=== PATIENT | male | born 1940 | race Caucasian/White ===

== ENCOUNTER → 2018-03-23 | Outpatient (CLI) | payer MEDICARE, BC ==
--- NOTE | 2018-03-23 09:37 | MR ---
EXAMINATION TYPE: MR brain wo/w con DATE OF EXAM: 03/23/2018 9:17 AM COMPARISON: NONE HISTORY: Memory loss TECHNIQUE: Multiplanar, multiecho imaging of the brain was obtained with and without intravenous adm inistration of 10 mL intravenous Gadavist. FINDINGS: Midline structures are unremarkable. There is a normal craniocervical junction. Echoplanar diffusion imaging is normal. There is mild mucoperiosteal thickening involving the left maxillary sinus. There are retention cyst or polyps involving both maxillary antra. The largest is in the left maxillary sinus and measures 1.3 cm. There are normal vascular flow voids. The orbits appear normal. There is no evidence of a CP angle mass lesion. There is both punctate and confluent periventricular white matter change which is likely on the basis of chronic ischemic change and small vessel disease. Other forms of demyelination are not entirely e xcluded. There is no mass effect, midline shift or intracranial blood. Following intravenous administration of gadolinium, I do not see evidence of abnormal enhancement. IMPRESSION: 1. NO ACUTE INTRACRANIAL ABNORMALITY. 2. BOTH PUNCTATE AND CONFLUENT PERIVENTRICULAR WHITE MATTER CHANGE COMPATIBLE WITH A COMBINATION OF C HRONIC ISCHEMIC CHANGE AND SMALL VESSEL ISCHEMIC CHANGE. 3. BILATERAL MAXILLARY MUCOSAL DISEASE.
== END | disposition home or self-care (01) ==
LOC: RADMRIMAIN 07:24
PROVIDERS: ATTEND Psychiatry & Neurology Neurology
DX: I67.82 Cerebral ischemia (principal); G31.9 Degenerative disease of nervous system, unspecified; Z86.69 Personal history of other diseases of the nervous system and sense organs
CPT/HCPCS: 82565; 70553; 36415; A9585

== ENCOUNTER 2019-12-20 04:37 | Observation (INO) | payer MEDICARE, BC ==
[2019-12-20 05:11] LABS: Basophils # (A) 0.1 k/uL (0-0.2); Basophils % (A) 1 %; Eosinophils # (A) 0.5 k/uL (0-0.7); Eosinophils % (A) 10 %; HCT 44.5 % (39.0-53.0); HGB 14.4 gm/dL (13.0-17.5); Lymphocytes # (A) 1.3 k/uL (1.0-4.8); Lymphocytes % (A) 23 %; MCH 30.3 pg (25.0-35.0); MCHC 32.3 g/dL (31.0-37.0); MCV 93.8 fL (80.0-100.0); Monocytes # (A) 0.3 k/uL (0-1.0); Monocytes % (A) 6 %; Neutrophils # (A) 3.3 k/uL (1.3-7.7); Neutrophils % (A) 59 %; Platelet Count 178 k/uL (150-450); RBC 4.74 m/uL (4.30-5.90); WBC 5.6 k/uL (3.8-10.6)
--- NOTE | 2019-12-20 05:12 | ED ---
Abdominal Pain HPI - General Chief Complaint: Abdominal Pain Stated Complaint: Abdominal Pain Time Seen by Provider: 12/20/19 04:46 Source: patient, EMS Mode of arrival: EMS Limitations: no limitations - History of Present Illness Initial Comments: This patient is an 79-year-old man who presents to be evaluated for left upper quadrant pain. The patient states that his symptoms had started yesterday at approximately 4 PM. He noticed the onset of left upper quadrant pain. He is not able to characterize the pain. He states that it was constant but not severe. He had eaten his evening meal as usual and states that he had what he considered be a normal bowel movement yesterday evening. Patient went to sleep and then woke up this morning and the pain was severe so his called EMS. The patient did receive 50 g of fentanyl and states that this had result the pain. Patient has not had any other associated symptoms. During the initial hi story and physical he is declining additional analgesia MD Complaint: abdominal pain Onset/Timin -: hour(s) Location: LUQ Radiation: none Severity scale (1-10): 9 Quality: other (Unable to characterize) Consistency: now resolved Improves With: medication (Fentanyl) Worsens With: nothing Treatments Prior to Arrival: other - Related Data Home Medications Medication Instructions Recorded Confirmed Aspirin 81 mg PO DAILY 08/15/13 12/20/19 Losartan Potassium [Cozaar] 100 mg PO DAILY 08/15/13 12/20/19 Donepezil HCl [Aricept] 10 mg PO DAILY 12/20/19 12/20/19 Fish Oil/Dha/Epa [Fish Oil 1,200 1 cap PO DAILY 12/20/19 12/20/19 mg Fish Oil] Garlic 1 tab PO DAILY 12/20/19 12/20/19 Latanoprost/Pf [Latanoprost 0.005% 1 drop BOTH EYES HS 12/20/19 12/20/19 Eye Drop] Multivitamins, Thera [Multivitamin 1 tab PO DAILY 12/20/19 12/20/19 (formulary)] Turmeric Root Extract [Turmeric] 500 mg PO DAILY 12/20/19 12/20/19 buPROPion XL [Wellbutrin Xl] 300 mg PO DAILY 12/20/19 12/20/19 Previous Rx's Medication Instructions Recorded Hydrocodone/Acetaminophen [Palmer 1 each PO Q6HR PRN #20 tab 12/20/19 5-325] Ondansetron Odt [Zofran ODT] 4 mg PO Q8HR PRN #10 tab 12/20/19 Allergies Allergy/AdvReac Type Severity Reaction Status Date / Time No Known Allergies Allergy Verified 12/20/19 07:36 Review of Systems ROS Statement: Those systems with pertinent positive or pertinent negative responses have been documented in the HPI. ROS Other: All systems not noted in ROS Statement are negative. Constitutional: Denies: fever, chills Respiratory: Denies: cough, dyspnea Cardiovascular: Denies: chest pain, palpitations, edema, syncope Gastrointestinal: Reports: as per HPI, abdominal pain. Denies: nausea, vomiting, diarrhea, constipation, melena, hematochezia Genitourinary: Denies: dysuria, hematuria, testicular pain Musculoskeletal: Denies: back pain Skin: Denies: rash Neurological: Denies: headache, weakness, numbness Past Medical History Past Medical History: Hypertension Additional Past Medical History / Comment(s): Medical history; patient has a history of depression, benign prostatic hypertrophy, hypertension and glaucoma. The patient surgery include spinal surgery as a teenager. Recent Right RAMON done 07/29/2013 History of Any Multi-Drug Resistant Organisms: None Reported Past Surgical History: Cholecystectomy, Joint Replacement Additional Past Surgical History / Comment(s): RIGHT HIP Past Anesthesia/Blood Transfusion Reactions: No Reported Reaction Past Psychological History: Depression Smoking Status: Never smoker Past Alcohol Use History: None Reported Past Drug Use History: None Reported General Exam Limitations: no limitations General appearance: alert, in no apparent distress Head exam: Present: atraumatic, normocephalic Eye exam: Present: normal appearance. Absent: scleral icterus, conjunctival injection ENT exam: Present: normal oropharynx Neck exam: Present: normal inspection Respiratory exam: Present: normal lung sounds bilaterally. Absent: respiratory distress, wheezes, rales, rhonchi, stridor, chest wall tenderness Cardiovascular Exam: Present: regular rate, normal rhythm, normal heart sounds. Absent: systolic murmur, diastolic murmur, rubs, gallop GI/Abdominal exam: Present: soft, tenderness (Left upper quadrant). Absent: distended, guarding, rebound, rigid, mass, pulsatile mass Extremities exam: Present: normal inspection, normal capillary refill. Absent: pedal edema, calf tenderness Back exam: Present: normal inspection. Absent: CVA tenderness (R), CVA tenderness (L) Neurological exam: Present: alert Skin exam: Present: warm, dry, intact, normal color. Absent: rash Course Vital Signs 12/20/19 12/20/19 04:43 07:08 Temperature 98.7 F 98 F Pulse Rate 60 65 Respiratory 18 18 Rate Blood Pressure 134/71 148/90 O2 Sat by Pulse 95 96 Oximetry Medical Decision Making - Lab Data Result diagrams: 12/20/19 04:56 12/20/19 04:56 Lab Results 12/20/19 12/20/19 12/20/19 Range/Units 04:56 04:56 04:56 WBC 5.6 (3.8-10.6) k/uL RBC 4.74 (4.30-5.90) m/uL Hgb 14.4 (13.0-17.5) gm/dL Hct 44.5 (39.0-53.0) % MCV 93.8 (80.0-100.0) fL MCH 30.3 (25.0-35.0) pg MCHC 32.3 (31.0-37.0) g/dL RDW 13.0 (11.5-15.5) % Plt Count 178 (150-450) k/uL Neutrophils % 59 % Lymphocytes % 23 % Monocytes % 6 % Eosinophils % 10 % Basophils % 1 % Neutrophils # 3.3 (1.3-7.7) k/uL Lymphocytes # 1.3 (1.0-4.8) k/uL Monocytes # 0.3 (0-1.0) k/uL Eosinophils # 0.5 (0-0.7) k/uL Basophils # 0.1 (0-0.2) k/uL Sodium 139 (137-145) mmol/L Potassium 4.5 (3.5-5.1) mmol/L Chloride 110 H (98-107) mmol/L Carbon Dioxide 21 L (22-30) mmol/L Anion Gap 8 mmol/L BUN 35 H (9-20) mg/dL Creatinine 1.12 (0.66-1.25) mg/dL Est GFR (CKD-EPI)AfAm 72 (>60 ml/min/1.73 sqM) Est GFR (CKD-EPI)NonAf 62 (>60 ml/min/1.73 sqM) Glucose 103 H (74-99) mg/dL Plasma Lactic Acid Josué (0.7-2.0) mmol/L Calcium 8.9 (8.4-10.2) mg/dL Total Bilirubin 0.5 (0.2-1.3) mg/dL AST 40 (17-59) U/L ALT 22 (4-49) U/L Alkaline Phosphatase 77 (38-126) U/L Troponin I (0.000-0.034) ng/mL Total Protein 6.8 (6.3-8.2) g/dL Albumin 3.9 (3.5-5.0) g/dL Amylase 246 H (30-110) U/L Lipase 893 H (23-300) U/L Urine Color Yellow Urine Appearance Clear (Clear) Urine pH 5.0 (5.0-8.0) Ur Specific [place] 1.024 (1.001-1.035) Urine Protein Negative (Negative) Urine Glucose (UA) Negative (Negative) Urine Ketones Negative (Negative) Urine Blood Negative (Negative) Urine Nitrite Negative (Negative) Urine Bilirubin Negative (Negative) Urine Urobilinogen <2.0 (<2.0) mg/dL Ur Leukocyte Esterase Negative (Negative) 12/20/19 12/20/19 Range/Units 04:56 04:56 WBC (3.8-10.6) k/uL RBC (4.30-5.90) m/uL Hgb (13.0-17.5) gm/dL Hct (39.0-53.0) % MCV (80.0-100.0) fL MCH (25.0-35.0) pg MCHC (31.0-37.0) g/dL RDW (11.5-15.5) % Plt Count (150-450) k/uL Neutrophils % % Lymphocytes % % Monocytes % % Eosinophils % % Basophils % % Neutrophils # (1.3-7.7) k/uL Lymphocytes # (1.0-4.8) k/uL Monocytes # (0-1.0) k/uL Eosinophils # (0-0.7) k/uL Basophils # (0-0.2) k/uL Sodium (137-145) mmol/L Potassium (3.5-5.1) mmol/L Chloride (98-107) mmol/L Carbon Dioxide (22-30) mmol/L Anion Gap mmol/L BUN (9-20) mg/dL Creatinine (0.66-1.25) mg/dL Est GFR (CKD-EPI)AfAm (>60 ml/min/1.73 sqM) Est GFR (CKD-EPI)NonAf (>60 ml/min/1.73 sqM) Glucose (74-99) mg/dL Plasma Lactic Acid Josué 0.9 (0.7-2.0) mmol/L Calcium (8.4-10.2) mg/dL Total Bilirubin (0.2-1.3) mg/dL AST (17-59) U/L ALT (4-49) U/L Alkaline Phosphatase (38-126) U/L Troponin I <0.012 (0.000-0.034) ng/mL Total Protein (6.3-8.2) g/dL Albumin (3.5-5.0) g/dL Amylase (30-110) U/L Lipase (23-300) U/L Urine Color Urine Appearance (Clear) Urine pH (5.0-8.0) Ur Specific [place] (1.001-1.035) Urine Protein (Negative) Urine Glucose (UA) (Negative) Urine Ketones (Negative) Urine Blood (Negative) Urine Nitrite (Negative) Urine Bilirubin (Negative) Urine Urobilinogen (<2.0) mg/dL Ur Leukocyte Esterase (Negative) Disposition Clinical Impression: Pancreatitis, Abdominal pain Disposition: ADMITTED IP TO THIS [facility] Condition: Good Is patient prescribed a controlled substance at d/c from ED?: Yes When asked, does pt state using other controlled substances?: No If prescribed controlled substance>3 days was MAPS reviewed?: Prescribed <3 Days If opioid is for acute pain is fill amount 7 days or less?: Yes If Rx opioid, was Start Talking consent form obtained?: Yes
[2019-12-20 05:24] LABS: Albumin 3.9 g/dL (3.5-5.0); Calcium 8.9 mg/dL (8.4-10.2); Total Bilirubin 0.5 mg/dL (0.2-1.3); Total Protein 6.8 g/dL (6.3-8.2)
--- NOTE | 2019-12-20 05:31 | CT ---
EXAMINATION TYPE: CT abdomen pelvis wo con DATE OF EXAM: 12/20/2019 COMPARISON: None HISTORY: lUQ pain CT DLP: 960.9 mGycm Automated exposure control for dose reduction was used. Images were obtained from the diaphragm to the floor the pelvis with no contrast. There is interstitial fibrotic changes at the lung bases. There is moderate-sized hiatal hernia. Hear t is borderline enlarged. There is no pericardial effusion. There is no pleural effusion. There are clips from cholecystectomy. Liver shows no focal defect. Spleen is intact. There is no evid ence of pancreatic mass. The bile ducts are not dilated. Stomach has overall normal size. There is no adrenal mass. There is 3 cm hypodense area anterior right kidney that is probably a corti woo cyst. Ureters are not dilated. There is no hydronephrosis. There are bilateral probable renal par apelvic cysts. There is no retroperitoneal adenopathy. Bladder distends smoothly. There is metal anirudh fact from right hip prosthesis. There is no inguinal hernia. There is no free fluid in the pelvis. Th ere is multiple sigmoid diverticula. There is no sign of diverticulitis. The cecum is at the midline abdomen. Appendix is not seen. There is no sign of thickened appendix. There is no ascites or free ai r. There is no evidence of a bowel obstruction. There is no mesenteric edema. Lumbar vertebra have normal alignment. There is mild narrowing of disc spaces. There is no compressio n fracture. The bony pelvis is intact. There is some L4-5 mild bony spinal stenosis. There is mild L3 -4 bony spinal stenosis. IMPRESSION: Interstitial fibrotic changes and subsegmental atelectasis at the lung bases. Hiatal hernia. Renal pa rapelvic cysts. No renal obstruction. Appendix not seen. Moderate sigmoid diverticulosis without diverticulitis.
[2019-12-20 05:41] LABS: Potassium 4.5 mmol/L (3.5-5.1)
[2019-12-20 06:08] LABS: Appearance,Urine Clear (Clear); Bilirubin,Urine Negative (Negative); Blood,Urine Negative (Negative); Color,Urine Yellow; Glucose,Urine (UA) Negative (Negative); Ketones,Urine Negative (Negative); Leukocyte Esterase,Urine Negative (Negative); Nitrite,Urine Negative (Negative); Protein,Urine Negative (Negative); Specific Gravity,Urine 1.024 (1.001-1.035); Urobilinogen,Urine <2.0 mg/dL (<2.0)
[2019-12-20] MEDS ORDERED: SODIUM CHLORIDE 0.9% 500 ML 500 ML IV STA (06:41)
[2019-12-20] MEDS ORDERED: MORPHINE SULFATE 4 MG/ML SYRINGE IV STA (06:41)
[2019-12-20] MEDS ORDERED: NALOXONE 0.4 MG/ML 1 ML VIAL IV PRN (08:15)
[2019-12-20] MEDS ORDERED: ONDANSETRON 4 MG/2 ML VIAL IVP PRN (08:15)
[2019-12-20] MEDS ORDERED: MORPHINE SULFATE 4 MG/ML SYRINGE IV PRN (08:15)
[2019-12-20] MEDS: SODIUM CHLORIDE 0.9% 1,000 ML IV SCH ×2 (08:32→16:51)
--- NOTE | 2019-12-20 08:41 | P.HPIM ---
History of Present Illness H&P Date: 12/20/19 Chief Complaint: Abdominal pain, pancreatitis This is an 79-year-old patient of Dr. anisha Jacobs with past medical history significant for hypertension, BPH, depression, and glaucoma. Patient presented today with intractable abdominal pain. Patient states that yesterday he noticed abdominal discomfort in the left upper quadrant around 4 PM. Patient ate his evening meal without any difficulties denies any nausea or vomiting at that time. Patient states that he had a normal bowel movement in the morning. Patient went to sleep and was awoken at 4:00 with severe abdominal pain. At that time as patient's called for EMS and was brought into the emergency room. Patient was found to have elevated amylase and lipase. Patient was given fentanyl which did relieve his symptoms. Patient is found resting in bed complaining of severe left upper quadrant abdominal pain. Patient states that the pain is worse with moving. Patient does drink beer however he usually only has 1 beer probably once a week. Patient did have a beer approximately 1 day prior to this episode. Patient experienced a fall 2-3 days ago where he tripped landing on his knees. Patient was able to get up on own. He denies any injury denies any hip or back pain. Review of Systems Review Of Systems: Constitutional: No fever, no chills, no night sweats. No weight change. No weakness, fatigue or lethargy. No daytime sleepiness. Reports recent fall EENT: No headache. No blurred vision or double vision, no loss of vision. No loss of Hearing, no ringing in the ears, no dizziness. No nasal drainage or congestion. No epistaxis. No sore throat. Lungs: No shortness of breath, cough, no sputum production. No wheezing. Cardiovascular: No chest pain, no lower extremity edema. No palpitations. No paroxysmal nocturnal dyspnea. No orthopnea. No lightheadedness or dizziness. No syncopal episodes. Abdominal: Reports abdominal severe discomfort. No nausea, vomiting. no diarrhea. No constipation. No bloody or tarry stools. no loss of appetite. Genitourinary: No dysuria, increased frequency, urgency. No urinary retention. Musculoskeletal: No myalgias. No muscle weakness, no gait dysfunction, no frequent falls. No back pain. No neck pain. Integumentary: No wounds, no lesions. No rash or pruritus. No unusual bruising. No change in hair or nails. Neurologic: No aphasia. No facial droop. No change in mentation. No head injury. No headache. No paralysis. No paresthesia. Psychiatric: No depression. No anxiety. No mood swings. Endocrine: No abnormal blood sugars. No weight change. No excessive sweating or thirst. Past Medical History Past Medical History: Hypertension Additional Past Medical History / Comment(s): Medical history; patient has a history of depression, benign prostatic hypertrophy, hypertension and glaucoma. The patient surgery include spinal surgery as a teenager. Recent Right RAMON done 07/29/2013 History of Any Multi-Drug Resistant Organisms: None Reported Past Surgical History: Cholecystectomy, Joint Replacement Additional Past Surgical History / Comment(s): RIGHT HIP Past Anesthesia/Blood Transfusion Reactions: No Reported Reaction Past Psychological History: Depression Smoking Status: Never smoker Past Alcohol Use History: None Reported Past Drug Use History: None Reported Additional History: Daughter- healthy, sister-healthy, mom- throat ca, dad- age 70 liver Medications and Allergies Home Medications Medication Instructions Recorded Confirmed Type Aspirin 81 mg PO DAILY 08/15/13 12/20/19 History Losartan Potassium [Cozaar] 100 mg PO DAILY 08/15/13 12/20/19 History Donepezil HCl [Aricept] 10 mg PO DAILY 12/20/19 12/20/19 History Fish Oil/Dha/Epa [Fish Oil 1,200 1 cap PO DAILY 12/20/19 12/20/19 History mg Fish Oil] Garlic 1 tab PO DAILY 12/20/19 12/20/19 History Hydrocodone/Acetaminophen [Birney 1 each PO Q6HR PRN #20 tab 12/20/19 Rx 5-325] Latanoprost/Pf [Latanoprost 0.005% 1 drop BOTH EYES HS 12/20/19 12/20/19 History Eye Drop] Multivitamins, Thera [Multivitamin 1 tab PO DAILY 12/20/19 12/20/19 History (formulary)] Ondansetron Odt [Zofran ODT] 4 mg PO Q8HR PRN #10 tab 12/20/19 Rx Turmeric Root Extract [Turmeric] 500 mg PO DAILY 12/20/19 12/20/19 History buPROPion XL [Wellbutrin Xl] 300 mg PO DAILY 12/20/19 12/20/19 History Allergies Allergy/AdvReac Type Severity Reaction Status Date / Time No Known Allergies Allergy Verified 12/20/19 07:36 Physical Exam Vitals: Vital Signs Temp Pulse Resp BP Pulse Ox 12/20/19 07:08 98 F 65 18 148/90 96 12/20/19 04:43 98.7 F 60 18 134/71 95 Intake and Output 12/19/19 12/20/19 12/20/19 22:59 06:59 14:59 Other: Weight 95.254 kg General Appearance: Alert, cooperative, no distress, appears stated age. Neck HEENT: Supple, no lymphadenopathy, no thyroid enlargement, no carotid bruits. Lungs: Clear to auscultation without crackles or wheezes no rhonchi, no deformity. Chest Wall: Chest wall normal expansion with deep inspiration no tenderness and no deformity was found on exam, no costochondral pain or discomfort. Heart: Regular rate and rhythm, S1, S2 normal, no murmur, rub or gallop. Back: Symmetric, no curvature, ROM normal, no CVA tenderness. Abdomen: Pain with palpation, Soft, no rebound or rigidity, no hepatosplenomegaly. Extremities: Extremities normal, atraumatic, no cyanosis or edema. Pulses: 2+ and symmetric. Skin: Skin color, texture, tugor normal, no rashes or lesions. Neurologic: Alert oriented x3 cranial nerves II through XII intact, no motor deficit, no abnormal balance or gait Results CBC & Chem 7: 12/20/19 04:56 12/20/19 04:56 Labs: Abnormal Lab Results - Last 24 Hours (Table) 12/20/19 Range/Units 04:56 Chloride 110 H (98-107) mmol/L Carbon Dioxide 21 L (22-30) mmol/L BUN 35 H (9-20) mg/dL Glucose 103 H (74-99) mg/dL Amylase 246 H (30-110) U/L Lipase 893 H (23-300) U/L Assessment and Plan Assessment: 1. Pancreatitis. Consult gastroenterology, nothing by mouth this time except ice chips, bowel rest. Anoscopy many years ago. We'll continue with pain meds. 2. Abdominal pain. See above 3. Episodic alcohol intake. 3. Hypertension. Continue with Cozaar 4. BPH. Stable 5. Depression. Continue with Wellbutrin 300 mg by mouth 6. DVT prophylaxis subcu heparin 7. GI prophylaxis Protonix 40 mg twice a day CODE STATUS: Full code Discharge plan: Home Impression and plan of care have been directed as dictated by the signing physician. Indu Carter nurse practitioner acting as scribe for signing physician. Plan: 1. Abdominal pain. Continue pain analgesics with Dilaudid and nausea with Zofran 2. Pancreatitis. Consult gastroenterology 3. Hypertension continue Cozaar 100 mg daily 4. BPH. Stable 5. Depression. Continue Wellbutrin 200 mg daily DVT prophylaxis GI prophylaxis CODE STATUS: Full code Impression and plan of care have been directed as dictated by the signing physician. Indu Carter nurse practitioner acting as scribe for signing physician.
[2019-12-20] MEDS: HYDROmorphone 0.5 MG/0.5 ML SYRINGE IVP PRN ×3 (09:37→16:50)
[2019-12-20] MEDS: ASPIRIN 81 MG PO SCH (09:40)
[2019-12-20] MEDS: buPROPion XL 300 MG TAB.ER.24H PO SCH ×2 (09:40→11:04)
[2019-12-20] MEDS: LOSARTAN 50 MG TAB PO SCH ×2 (09:40→11:03)
[2019-12-20] MEDS: PANTOPRAZOLE 40 MG/10 ML VIAL IVP SCH (11:02)
[2019-12-20] MEDS: HEPARIN SODIUM,PORCINE 5,000 UNIT/ML 1 ML VIAL SQ SCH ×2 (11:02→21:28)
--- NOTE | 2019-12-20 11:38 | US ---
EXAMINATION TYPE: US abdomen limited DATE OF EXAM: 12/20/2019 COMPARISON: NONE CLINICAL HISTORY: 79-year-old male LUQ pain. Abdominal pain, cholecystectomy TECHNIQUE: Multiple sonographic images of the right upper quadrant are obtained. FINDINGS: EXAM MEASUREMENTS: Liver Length: 17.6 cm Gallbladder: Surgically absent CBD: 8.8 mm Right Kidney: 11.0 x 5.5 x 5.0 cm Laboratory Tech notes:Technical limitations due to large amount of overlying bowel content Pancreas: Obscured by bowel gas Liver: limited evaluation, appears heterogeneous. However, this may be undetectable basis. No visual ized focal lesion. Gallbladder: Surgically absent Evidence for sonographic Pepper's sign: no CBD: limited evaluation. The visualized duct is dilated but acceptable given patient's age and postc holecystectomy status. Further correlation can be made with alkaline phosphatase and bilirubin levels . Right Kidney: Cyst at the upper pole = 1.9 x 1.8 x 1.9cm . No hydronephrosis. IMPRESSION: 1. Bile duct is dilated at 8.8 mm but acceptable given patient's age and postcholecystectomy status. Correlate with alkaline phosphatase and bilirubin levels. 2. Slight heterogeneous appearance to the liver probably on a technical basis given exam limitations.
--- NOTE | 2019-12-20 13:13 | CONS ---
CONSULTATION DATE OF SERVICE: 12/20/2019 REASON FOR CONSULTATION: Acute pancreatitis. HISTORY OF PRESENT ILLNESS: The patient is an 79-year-old pleasant white male with history of hypertension was admitted to hospital because of acute onset of severe epigastric and left upper quadrant abdominal pain that started yesterday evening. The pain continued to progressively get worse with some nausea but no emesis. He came in the ER and was noted to have mild elevation of amylase and lipase and was admitted to the hospital with acute pancreatitis. He did have a CT of the abdomen and pelvis done that showed evidence of cholecystectomy, no pancreatic masses and no dilated ducts noted. There was some interstitial fibrotic changes noted in the lung bases and a hiatal hernia. PAST MEDICAL HISTORY: Significant for hypertension, depression, BPH, glaucoma. PAST SURGICAL HISTORY: Cholecystectomy, right hip surgery. MEDICATIONS: Medications at home include [place], garlic, aspirin, losartan, multivitamin, Zofran, Wellbutrin, tumeric. ALLERGIES: None. SOCIAL HISTORY: No smoking, no alcohol use. FAMILY HISTORY: Unremarkable. REVIEW OF SYSTEMS: CARDIOPULMONARY: No chest pain, no shortness of breath. : No dysuria or hematuria. MUSCULOSKELETAL: Unremarkable. SKIN: Unremarkable. ENDOCRINE: Unremarkable. PSYCHIATRIC: Unremarkable. CONSTITUTIONAL: No recent weight loss. No fever, chills, night sweats. PHYSICAL EXAMINATION: He appears comfortable. No apparent distress. Vital signs stable. Blood pressure is 147/78, pulse rate 79, temperature 97.9. HEENT examination unremarkable. Conjunctivae pink, sclerae anicteric. Oral cavity no lesions. NECK: No JVD or lymph node enlargement. CHEST: Clear to auscultation. HEART: Regular rate and rhythm. ABDOMEN: Soft. There was mild tenderness in the left upper quadrant area. Minimal tenderness in the epigastric area. Rest of the abdomen was benign. Bowel sounds are positive, no organomegaly. EXTREMITIES: No pedal edema. NEURO: He is alert and oriented x3. No focal deficits. LABS: WBC 5.6, hemoglobin 14.4, platelets normal. BUN 35, creatinine 1.12. Basic metabolic panel is within normal limits. Amylase 246, lipase is 893. ALT, AST, T bilirubin and alkaline phosphatase are within normal limits. IMPRESSION: Acute onset of severe epigastric and left upper quadrant abdominal pain that started yesterday evening and labs in the ER showed elevated amylase and lipase consistent with acute pancreatitis. The patient has no history of alcohol use and he has remote history of gallbladder surgery many years ago. Recent CT scan did not show any evidence of biliary ductal dilation. Serum transaminases are within normal limits making it unlikely that we are dealing with biliary pancreatitis. RECOMMENDATIONS: 1. Clear liquid diet. 2. Pain medications as needed. 3. Continue with IV hydration. 4. Repeat labs in the morning and if they are improving he can be discharged home with outpatient followup in two weeks. Thank you for this consultation. MMMANPREETL / EVANSN: [id number] /
[2019-12-20] MEDS ORDERED: LATANOPROST 0.005% OPHTH DROPS 2.5 ML BTL BOTH EYES SCH (21:00)
[2019-12-21] MEDS: SODIUM CHLORIDE 0.9% 1,000 ML IV SCH ×2 (00:32→08:53)
[2019-12-21] MEDS: HYDROmorphone 0.5 MG/0.5 ML SYRINGE IVP PRN ×2 (02:28→08:07)
[2019-12-21 07:32] VITALS: BP 145/74; PULSE 75; RESP 18; TEMP 98.1
[2019-12-21 07:56] LABS: Basophils # (A) 0.1 k/uL (0-0.2); Basophils % (A) 1 %; Eosinophils # (A) 0.4 k/uL (0-0.7); Eosinophils % (A) 7 %; HCT 45.7 % (39.0-53.0); HGB 14.5 gm/dL (13.0-17.5); Lymphocytes # (A) 1.3 k/uL (1.0-4.8); Lymphocytes % (A) 24 %; MCHC 31.7 g/dL (31.0-37.0); MCV 94.7 fL (80.0-100.0); Mean Platelet Volume 7.2; Monocytes # (A) 0.3 k/uL (0-1.0); Monocytes % (A) 6 %; Neutrophils # (A) 3.2 k/uL (1.3-7.7); Neutrophils % (A) 61 %; Platelet Count 186 k/uL (150-450); RBC 4.82 m/uL (4.30-5.90); RDW 13.1 % (11.5-15.5); WBC 5.3 k/uL (3.8-10.6)
[2019-12-21 08:05] LABS: Calcium 8.8 mg/dL (8.4-10.2); Potassium 4.4 mmol/L (3.5-5.1); Total Bilirubin 0.9 mg/dL (0.2-1.3)
[2019-12-21] MEDS: ASPIRIN 81 MG PO SCH (08:08)
[2019-12-21] MEDS: HEPARIN SODIUM,PORCINE 5,000 UNIT/ML 1 ML VIAL SQ SCH (08:08)
[2019-12-21] MEDS: LOSARTAN 50 MG TAB PO SCH (08:08)
[2019-12-21] MEDS: PANTOPRAZOLE 40 MG/10 ML VIAL IVP SCH (08:08)
[2019-12-21] MEDS: buPROPion XL 300 MG TAB.ER.24H PO SCH (08:09)
--- NOTE | 2019-12-21 08:30 | P.PN ---
Subjective Progress Note Date: 12/21/19 This is an 79-year-old patient of Dr. anisha Jacobs with past medical history significant for hypertension, BPH, depression, and glaucoma. Patient presented today with intractable abdominal pain. Patient states that yesterday he noticed abdominal discomfort in the left upper quadrant around 4 PM. Patient ate his evening meal without any difficulties denies any nausea or vomiting at that time. Patient states that he had a normal bowel movement in the morning. Patient went to sleep and was awoken at 4:00 with severe abdominal pain. At that time as patient's called for EMS and was brought into the emergency room. Patient was found to have elevated amylase and lipase. Patient was given fentanyl which did relieve his symptoms. Patient is found resting in bed complaining of severe left upper quadrant abdominal pain. Patient states that the pain is worse with moving. Patient does drink beer however he usually only has 1 beer probably once a week. Patient did have a beer approximately 1 day prior to this episode. Patient experienced a fall 2-3 days ago where he tripped landing on his knees. Patient was able to get up on own. He denies any injury denies any hip or back pain. Review Of Systems: Constitutional: No fever, no chills, no night sweats. No weight change. No weakness, fatigue or lethargy. No daytime sleepiness. Reports recent fall EENT: No headache. No blurred vision or double vision, no loss of vision. No loss of Hearing, no ringing in the ears, no dizziness. No nasal drainage or congestion. No epistaxis. No sore throat. Lungs: No shortness of breath, cough, no sputum production. No wheezing. Cardiovascular: No chest pain, no lower extremity edema. No palpitations. No paroxysmal nocturnal dyspnea. No orthopnea. No lightheadedness or dizziness. No syncopal episodes. Abdominal: Reports abdominal severe discomfort. No nausea, vomiting. no di arrhea. No constipation. No bloody or tarry stools. no loss of appetite. Genitourinary: No dysuria, increased frequency, urgency. No urinary retention. Musculoskeletal: No myalgias. No muscle weakness, no gait dysfunction, no frequent falls. No back pain. No neck pain. Integumentary: No wounds, no lesions. No rash or pruritus. No unusual bruising. No change in hair or nails. Neurologic: No aphasia. No facial droop. No change in mentation. No head injury. No headache. No paralysis. No paresthesia. Psychiatric: No depression. No anxiety. No mood swings. Endocrine: No abnormal blood sugars. No weight change. No excessive sweating or thirst. Physical exam: General Appearance: Alert, cooperative, no distress, appears stated age. Neck HEENT: Supple, no lymphadenopathy, no thyroid enlargement, no carotid bruits. Lungs: Clear to auscultation without crackles or wheezes no rhonchi, no deformity. Chest Wall: Chest wall normal expansion with deep inspiration no tenderness and no deformity was found on exam, no costochondral pain or discomfort. Heart: Regular rate and rhythm, S1, S2 normal, no murmur, rub or gallop. Back: Symmetric, no curvature, ROM normal, no CVA tenderness. Abdomen: Pain with palpation, Soft, no rebound or rigidity, no hepatosplenomegaly. Extremities: Extremities normal, atraumatic, no cyanosis or edema. Pulses: 2+ and symmetric. Skin: Skin color, texture, tugor normal, no rashes or lesions. Neurologic: Alert oriented x3 cranial nerves II through XII intact, no motor deficit, no abnormal balance or gait Assessment/Plan: 1. Pancreatitis. Consult gastroenterology, nothing by mouth this time except ice chips, bowel rest. Anoscopy many years ago. We'll continue with pain meds. 2. Abdominal pain. See above 3. Episodic alcohol intake. 3. Hypertension. Continue with Cozaar 4. BPH. Stable 5. Depression. Continue with Wellbutrin 300 mg by mouth 6. DVT prophylaxis subcu heparin 7. GI prophylaxis Protonix 40 mg twice a day CODE STATUS: Full code Discharge plan: Home Impression and plan of care have been directed as dictated by the signing physician. Indu Carter nurse practitioner acting as scribe for signing physician. Objective - Vital Signs Vital signs: Vital Signs Temp 98.1 F 12/21/19 07:31 Pulse 75 12/21/19 07:55 Resp 18 12/21/19 07:55 BP 145/74 12/21/19 07:31 Pulse Ox 96 12/21/19 07:31 Intake & Output 12/20/19 12/21/19 12/21/19 18:59 06:59 18:59 Intake Total 2580 200 2330 Balance 2580 200 2330 Weight 96 kg Intake: Intake, IV Titration 1000 750 Amount Sodium Chloride 0.9% 1, 1000 750 000 ml @ 125 mls/hr IV . Q8H [facility] Rx#:[id number] Oral [id number] Other: Voiding Method Toilet Toilet Toilet Urinal Urinal Urinal # Voids 3 2 2 - Labs CBC & Chem 7: 12/21/19 07:30 12/21/19 07:30 Labs: Abnormal Lab Results - Last 24 Hours (Table) 12/21/19 Range/Units 07:30 Chloride 108 H (98-107) mmol/L Amylase 127 H (30-110) U/L
--- NOTE | 2019-12-21 10:56 | PN ---
PROGRESS NOTE DATE OF SERVICE: 12/21/2019 INTERVAL HISTORY: Patient is an 79-year-old white male admitted to the hospital with acute pancreatitis. He was noted to have elevated amylase and lipase. Yesterday he was started on a clear liquid diet. Today he is feeling better. The abdominal pain has completely resolved. He denies any symptoms. PHYSICAL EXAMINATION: Appears comfortable, in no apparent distress. VITAL SIGNS: Stable. Blood pressure 108/70, pulse rate 48, temperature 98. HEENT: Examination unremarkable. Conjunctivae are pink. Sclerae anicteric. Oral cavity no lesions. NECK: No JVD or lymph node enlargement. CHEST: Clear to auscultation. HEART: Regular rate and rhythm. ABDOMEN: Soft. Bowel sounds are positive. No organomegaly. EXTREMITIES: No pedal edema. SKIN: No rashes. NEURO: He is alert and oriented x3. No focal deficits. LABS: WBC 5.3, hemoglobin 14.5, platelets 186. Amylase and lipase are 127 and 100 respectively. AST, ALT, T bilirubin and alkaline phosphatase are normal. IMPRESSION: 1. Mild acute pancreatitis, resolving. The patient is doing well clinically, asymptomatic. Abdominal pain has completely resolved. 2. History of hypertension. RECOMMENDATION: 1. Advance to low-fat diet. 2. He can be discharged home today with outpatient followup in 2-3 weeks. MMODL / IJN: [id number] /
--- NOTE | 2019-12-21 11:08 | P.DS ---
Providers Date of admission: 12/20/19 08:15 Attending physician: Karen Calle Consults: 12/20/19 08:16 Consult Physician Routine Consulting Provider: Aliyah Greene Consult Reason/Comments: pancreatitis Do you want consulting provider notified?: Yes Primary care physician: Kai Jacobs [facility] Course: This is an 79-year-old patient of Dr. anisha Jacobs with past medical history significant for hypertension, BPH, depression, and glaucoma. Patient presented today with intractable abdominal pain. Patient states that yesterday he noticed abdominal discomfort in the left upper quadrant around 4 PM. Patient ate his evening meal without any difficulties denies any nausea or vomiting at that time. Patient states that he had a normal bowel movement in the morning. Patient went to sleep and was awoken at 4:00 with severe abdominal pain. At that time as patient's called for EMS and was brought into the emergency room. Patient was found to have elevated amylase and lipase. Patient was given fentanyl which did relieve his symptoms. Patient is found resting in bed complaining of severe left upper quadrant abdominal pain. Patient states that the pain is worse with moving. Patient botello s drink beer however he usually only has 1 beer probably once a week. Patient did have a beer approximately 1 day prior to this episode. Patient experienced a fall 2-3 days ago where he tripped landing on his knees. Patient was able to get up on own. He denies any injury denies any hip or back pain. 12/20/: Patient is resting comfortably in a chair. Patient states that his pain has decreased significantly. He has been on clear liquid diet without any difficulties. Amylase and has decreased to 127 and lipase 100. Patient has been afebrile. Denies any nausea or vomiting. Patient will be discharged today if able to tolerate diet. Patient follow-up with primary care in 1 week and gastroenterology in 2 weeks. Discharge diagnosis: 1. Abdominal pain. 2. Pancreatitis. 3. Hypertension 4. BPH. 5. Depression Discharge disposition: Home with self-care CC: Dr.T. Jacobs Impression and plan of care have been directed as dictated by the signing physician. Indu Carter nurse practitioner acting as scribe for signing physician. Patient Condition at Discharge: Good Plan - Discharge Summary Discharge Rx Participant: No New Discharge Prescriptions: New Hydrocodone/Acetaminophen [[place] 5-325] 1 each PO Q6HR PRN #20 tab PRN Reason: Pain Ondansetron Odt [Zofran ODT] 4 mg PO Q8HR PRN #10 tab PRN Reason: Nausea Continue Losartan Potassium [Cozaar] 100 mg PO DAILY Aspirin 81 mg PO DAILY Turmeric Root Extract [Turmeric] 500 mg PO DAILY Multivitamins, Thera [Multivitamin (formulary)] 1 tab PO DAILY Latanoprost/Pf [Latanoprost 0.005% Eye Drop] 1 drop BOTH EYES HS Garlic 1 tab PO DAILY Fish Oil/Dha/Epa [Fish Oil 1,200 mg Fish Oil] 1 cap PO DAILY buPROPion XL [Wellbutrin XL] 300 mg PO DAILY Donepezil HCl [Aricept] 10 mg PO DAILY Discharge Medication List Aspirin 81 mg PO DAILY 08/15/13 [History] Losartan Potassium [Cozaar] 100 mg PO DAILY 08/15/13 [History] Donepezil HCl [Aricept] 10 mg PO DAILY 12/20/19 [History] Fish Oil/Dha/Epa [Fish Oil 1,200 mg Fish Oil] 1 cap PO DAILY 12/20/19 [History] Garlic 1 tab PO DAILY 12/20/19 [History] Hydrocodone/Acetaminophen [[place] 5-325] 1 each PO Q6HR PRN #20 tab 12/20/19 [Rx] Latanoprost/Pf [Latanoprost 0.005% Eye Drop] 1 drop BOTH EYES HS 12/20/19 [History] Multivitamins, Thera [Multivitamin (formulary)] 1 tab PO DAILY 12/20/19 [History] Ondansetron Odt [Zofran ODT] 4 mg PO Q8HR PRN #10 tab 12/20/19 [Rx] Turmeric Root Extract [Turmeric] 500 mg PO DAILY 12/20/19 [History] buPROPion XL [Wellbutrin XL] 300 mg PO DAILY 12/20/19 [History] Follow up Appointment(s)/Referral(s): Aliyah Greene MD [STAFF PHYSICIAN] - 2 Weeks (Call on Sunday for an appointment when the office is open) Kai Jacobs MD [Primary Care Provider] - 1 Week (Call on Sunday when office is open for follow-up appointment) Patient Instructions/Handouts: Hydrocodone/Acetaminophen (By mouth), Ondansetron (By mouth), Pancreatitis (DC) Activity/Diet/Wound Care/Special Instructions: conditional discharge pending, must tolerate diet.
== END 2019-12-21 14:00 | disposition home or self-care (01) ==
LOC: EC 04:37 → 1SOBS 08:15
PROVIDERS: ADMIT Family Medicine; ATTEND Family Medicine
DX: K85.90 Acute pancreatitis without necrosis or infection, unspecified (principal); I10 Essential (primary) hypertension; N40.0 Benign prostatic hyperplasia without lower urinary tract symptoms; F32.9 Major depressive disorder, single episode, unspecified; H40.9 Unspecified glaucoma; J84.10 Pulmonary fibrosis, unspecified; K44.9 Diaphragmatic hernia without obstruction or gangrene; Z79.82 Long term (current) use of aspirin; Z79.899 Other long term (current) drug therapy; Z98.890 Other specified postprocedural states; Z96.641 Presence of right artificial hip joint; Z90.49 Acquired absence of other specified parts of digestive tract; Z91.81 History of falling; Z80.8 Family history of malignant neoplasm of other organs or systems
CPT/HCPCS: 96372 ×2; 96375; 96376 ×2; 96374; 99285; 36415; 80053 ×2; 82150 ×2; 83605; 83690 ×2; 84484; 85025 ×2; 81003; 76705; 74176; G0378 ×2; J2270; J1644 ×2; C9113 ×2; J1170 ×2

== ENCOUNTER 2019-12-22 03:58 | Emergency (ER) | payer MEDICARE, BC ==
[2019-12-22] MEDS ORDERED: SODIUM CHLORIDE 0.9% 1,000 ML IV STA (04:03)
[2019-12-22 04:08] VITALS: TEMP 98.2
[2019-12-22 04:21] LABS: Basophils % (A) 1 %; Eosinophils # (A) 0.4 k/uL (0-0.7); Eosinophils % (A) 7 %; HCT 43.1 % (39.0-53.0); HGB 13.8 gm/dL (13.0-17.5); Lymphocytes # (A) 1.2 k/uL (1.0-4.8); Lymphocytes % (A) 23 %; MCH 29.7 pg (25.0-35.0); MCHC 32.1 g/dL (31.0-37.0); MCV 92.4 fL (80.0-100.0); Mean Platelet Volume 7.3; Monocytes # (A) 0.3 k/uL (0-1.0); Monocytes % (A) 6 %; Neutrophils # (A) 3.2 k/uL (1.3-7.7); Neutrophils % (A) 62 %; Platelet Count 167 k/uL (150-450); RBC 4.66 m/uL (4.30-5.90); RDW 12.9 % (11.5-15.5); WBC 5.2 k/uL (3.8-10.6)
[2019-12-22 04:37] LABS: Albumin 3.6 g/dL (3.5-5.0); Potassium 4.1 mmol/L (3.5-5.1); Total Bilirubin 0.8 mg/dL (0.2-1.3); Total Protein 6.3 g/dL (6.3-8.2)
--- NOTE | 2019-12-22 04:52 | XR ---
EXAMINATION TYPE: XR KUB DATE OF EXAM: 12/22/2019 COMPARISON: 10/10/2013 HISTORY: Abdominal pain TECHNIQUE: 2 views upright FINDINGS: There is right hip prosthesis. There is no sign of intestinal obstruction or pneumoperitone um. Fecal pattern is normal. There are clips from cholecystectomy. There is no evidence of a mass. Th ere is spurring of the left acetabulum. There are no calcifications over the kidneys. IMPRESSION: Nonacute abdomen. No adverse change.
[2019-12-22 06:03] VITALS: BP 154/90; PULSE 68; RESP 17
--- NOTE | 2019-12-22 07:00 | ED ---
Abdominal Pain HPI - General Chief Complaint: Abdominal Pain Stated Complaint: Abdominal Pain Time Seen by Provider: 12/22/19 04:03 Source: patient, EMS Mode of arrival: ambulatory Limitations: no limitations - History of Present Illness Initial Comments: Seng is a very pleasant 79-year-old gentleman who was recently admitted the hospital for pancreatitis. Patient was subsequently discharged home and has been doing well. Patient reports that he woke up from sleep to use the restroom and when he got up he had a sharp pain in his left lower quadrant. He became concerned because of his recent hospital admission so he called 911 for transport to the hospital. Patient reports pain resolved prior to arrival. Patient denies any fevers chills nausea or vomiting. Reports normal bowel movements. - Related Data Home Medications Medication Instructions Recorded Confirmed Aspirin 81 mg PO DAILY 08/15/13 12/20/19 Losartan Potassium [Cozaar] 100 mg PO DAILY 08/15/13 12/20/19 Donepezil HCl [Aricept] 10 mg PO DAILY 12/20/19 12/20/19 Fish Oil/Dha/Epa [Fish Oil 1,200 1 cap PO DAILY 12/20/19 12/20/19 mg Fish Oil] Garlic 1 tab PO DAILY 12/20/19 12/20/19 Latanoprost/Pf [Latanoprost 0.005% 1 drop BOTH EYES HS 12/20/19 12/20/19 Eye Drop] Multivitamins, Thera [Multivitamin 1 tab PO DAILY 12/20/19 12/20/19 (formulary)] Turmeric Root Extract [Turmeric] 500 mg PO DAILY 12/20/19 12/20/19 buPROPion XL [Wellbutrin XL] 300 mg PO DAILY 12/20/19 12/20/19 Previous Rx's Medication Instructions Recorded Hydrocodone/Acetaminophen [[place] 1 each PO Q6HR PRN #20 tab 12/20/19 5-325] Ondansetron Odt [Zofran ODT] 4 mg PO Q8HR PRN #10 tab 12/20/19 Allergies Allergy/AdvReac Type Severity Reaction Status Date / Time No Known Allergies Allergy Verified 12/22/19 04:05 Review of Systems ROS Statement: Those systems with pertinent positive or pertinent negative responses have been documented in the HPI. ROS Other: All systems not noted in ROS Statement are negative. Past Medical History Past Medical History: Hypertension Additional Past Medical History / Comment(s): Medical history; patient has a history of depression, benign prostatic hypertrophy, hypertension and glaucoma. The patient surgery include spinal surgery as a teenager. Recent Right RAMON done 07/29/2013 History of Any Multi-Drug Resistant Organisms: None Reported Past Surgical History: Cholecystectomy, Joint Replacement Additional Past Surgical History / Comment(s): RIGHT HIP Past Anesthesia/Blood Transfusion Reactions: No Reported Reaction Past Psychological History: Depression Smoking Status: Never smoker Past Alcohol Use History: None Reported Past Drug Use History: None Reported General Exam - General Exam Comments Initial Comments: Physical Exam GENERAL: Patient is well-developed and well-nourished. Patient is nontoxic and well-hydrated and is in no distress. HENT: Normocephalic, Atraumatic. EYES: PERRL, EOMI PULMONARY: Unlabored respirations. No audible rales rhonchi or wheezing was noted. CARDIOVASCULAR: RRR ABDOMEN: Soft and nontender with normal bowel sounds. SKIN: Skin is clear with no lesions or rashes and otherwise unremarkable. : Deferred NEUROLOGIC: Patient is alert and oriented x3. Moving all extremities spontaneously MUSCULOSKELETAL: Normal extremities with adequate strength and full range of motion. PSYCHIATRIC: Normal psychiatric evaluation. Limitations: no limitations Course Vital Signs 12/22/19 12/22/19 03:59 06:02 Temperature 98.2 F 98.2 F Pulse Rate 66 68 Respiratory 15 17 Rate Blood Pressure 146/73 154/90 O2 Sat by Pulse 95 96 Oximetry Medical Decision Making - Medical Decision Making The patient was seen and evaluated history was obtained from patient and review of medical record Patient had a brief episode of sharp abdominal pain that resolved prior to arrival Labs are unremarkable KUB x-rays unremarkable Previous CT of the abdomen performed earlier in the week was reviewed there is no evidence of AAA At this time patient remains pain-free and is comfortable with the plan for discharge home. I discussed with the patient possible etiology of pain including gas pain versus strained muscle. No signs of bowel obstruction. - Lab Data Result diagrams: 12/22/19 04:10 12/22/19 04:13 Lab Results 12/22/19 12/22/19 Range/Units 04:10 04:13 WBC 5.2 (3.8-10.6) k/uL RBC 4.66 (4.30-5.90) m/uL Hgb 13.8 (13.0-17.5) gm/dL Hct 43.1 (39.0-53.0) % MCV 92.4 (80.0-100.0) fL MCH 29.7 (25.0-35.0) pg MCHC 32.1 (31.0-37.0) g/dL RDW 12.9 (11.5-15.5) % Plt Count 167 (150-450) k/uL Neutrophils % 62 % Lymphocytes % 23 % Monocytes % 6 % Eosinophils % 7 % Basophils % 1 % Neutrophils # 3.2 (1.3-7.7) k/uL Lymphocytes # 1.2 (1.0-4.8) k/uL Monocytes # 0.3 (0-1.0) k/uL Eosinophils # 0.4 (0-0.7) k/uL Basophils # 0.0 (0-0.2) k/uL Sodium 139 (137-145) mmol/L Potassium 4.1 (3.5-5.1) mmol/L Chloride 109 H (98-107) mmol/L Carbon Dioxide 22 (22-30) mmol/L Anion Gap 8 mmol/L BUN 19 (9-20) mg/dL Creatinine 1.02 (0.66-1.25) mg/dL Est GFR (CKD-EPI)AfAm 80 (>60 ml/min/1.73 sqM) Est GFR (CKD-EPI)NonAf 69 (>60 ml/min/1.73 sqM) Glucose 91 (74-99) mg/dL Calcium 9.0 (8.4-10.2) mg/dL Total Bilirubin 0.8 (0.2-1.3) mg/dL AST 29 (17-59) U/L ALT 18 (4-49) U/L Alkaline Phosphatase 73 (38-126) U/L Total Protein 6.3 (6.3-8.2) g/dL Albumin 3.6 (3.5-5.0) g/dL Lipase 129 (23-300) U/L Disposition Clinical Impression: Abdominal pain Disposition: HOME SELF-CARE Condition: Stable Instructions (If sedation given, give patient instructions): Abdominal Pain (ED) Is patient prescribed a controlled substance at d/c from ED?: No Referrals: Kai Jacobs MD [Primary Care Provider] - 1-2 days
== END 2019-12-22 07:20 | disposition home or self-care (01) ==
LOC: EC 03:58
DX: R10.32 Left lower quadrant pain (principal); F32.9 Major depressive disorder, single episode, unspecified; I10 Essential (primary) hypertension; Z79.899 Other long term (current) drug therapy; Z96.641 Presence of right artificial hip joint; Z90.49 Acquired absence of other specified parts of digestive tract
CPT/HCPCS: 36415; 74018; 80053; 83690; 85025; 96360; 96361; 99284

== ENCOUNTER → 2019-12-30 | Outpatient (CLI) | payer MEDICARE ==
--- NOTE | 2019-12-30 17:35 | ECHOF ---
Referral Reason:G45.9 Transient cerebral ischemic attack, unspecif MEASUREMENTS -------- HEIGHT: 182.9 cm WEIGHT: 95.3 kg BP: IVSd: 1.3 cm (0.6 - 1.1) LVIDd: 2.9 cm (3.9 - 5.3) LVPWd: 1.4 cm (0.6 - 1.1) EDV(Teich): 34 ml IVSs: 1.7 cm LVIDs: 1.3 cm LVPWs: 1.4 cm %IVS Thck: 32 % ESV(Teich): 4 ml EF(Teich): 88 % %FS: 57 % SV(Teich): 30 ml Ao Diam: 3.5 cm (2.0 - 3.7) LA Diam: 2.0 cm (2.7 - 3.8) AV Cusp: 1.7 cm (1.5 - 2.6) EPSS: 1.2 cm MV E Ricardo: 0.66 m/s MV DecT: 360 ms MV Dec Jerauld: 1.8 m/s MV A Ricardo: 0.99 m/s MV E/A Ratio: 0.67 MV PHT: 104 ms AV Vmax: 1.08 m/s AV maxP.64 mmHg AR Vmax: 1.87 m/s AR maxP.92 mmHg AR PHT: 404 ms AR Dec Time: 1394 ms AR Dec Jerauld: 1.3 m/s TR Vmax: 1.98 m/s TR maxP.74 mmHg RAP: 5.00 mmHg RVSP: 20.74 mmHg MV EF SLOPE: 33.61 mm/s (70 - 150) MV EXCURSION: 13.88 mm (> 18.000) FINDINGS -------- This was a technically difficult study with suboptimal views. The left ventricular size is normal. There is moderate concentric left ventricular hypertrophy. O verall left ventricular systolic function is normal with, an EF between 55 - 60 %. The RV was not well visualized. The left atrial size is normal. The right atrial size is normal. Lumason used Aortic valve is trileaflet and is mildly thickened. Trace amount of aortic regurgitation. The mitral valve is normal. There is trace mitral regurgitation. The tricuspid valve appears structurally normal. Trace tricuspid regurgitation present. Right zenia tricular systolic pressure is normal at < 35 mmHg. The pulmonic valve was not well visualized. The aortic root size is normal. IVC Not well visulized. There is no pericardial effusion. CONCLUSIONS -------- 1. The left ventricular size is normal. 2. There is moderate concentric left ventricular hypertrophy. 3. Overall left ventricular systolic function is normal with, an EF between 55 - 60 %. 4. Aortic valve is trileaflet and is mildly thickened. 5. Trace amount of aortic regurgitation. 6. There is trace mitral regurgitation. 7. Trace tricuspid regurgitation present. 8. There is no pericardial effusion. [facility] RN: Yun Muñoz RDCS
== END | disposition home or self-care (01) ==
LOC: RADECHMAIN 11:55
PROVIDERS: ATTEND Psychiatry & Neurology Neurology
DX: I51.7 Cardiomegaly (principal); G45.9 Transient cerebral ischemic attack, unspecified
CPT/HCPCS: C8929; Q9950; 93306

== ENCOUNTER 2021-06-24 17:26 | Emergency (ER) | payer MEDICARE ==
[2021-06-24] MEDS ORDERED: SODIUM CHLORIDE 0.9% 500 ML 500 ML IV STA (18:31)
[2021-06-24] MEDS ORDERED: LIDOCAINE 1% INJ 10MG/ML (20 ML MDV) SQ ONE (18:32)
--- NOTE | 2021-06-24 18:41 | ED ---
General Adult HPI - General Chief complaint: Head Injury Stated complaint: Fall Time Seen by Provider: 06/24/21 18:25 Source: patient, family, EMS, RN notes reviewed, old records reviewed Mode of arrival: ambulatory Limitations: no limitations - History of Present Illness Initial comments: 80-year-old male, alert and oriented presents with complaints of fall today in the bathroom. States he fell back and hit his head on the bathtub. states that she heard him fall and went in to check on him. She states he did not loose consciousness. Patient denies any pain, he states he went to shave and the next thing he knew he was on the floor. Denies any headache, neck pain or back pain. No chest pain or difficulty in breathing. Patient does have a history of cerebral palsy and hypertension. He does take an aspirin a day, no other blood thinners. -: hour(s) (2) Location: head Severity scale (1-10): 0 Associated Symptoms: denies other symptoms Treatments Prior to Arrival: other (dressing) - Related Data Home Medications Medication Instructions Recorded Confirmed Aspirin 81 mg PO DAILY@119908/15/13 06/24/21 Losartan Potassium [Cozaar] 100 mg PO 08/15/13 06/24/21 Donepezil HCl [Aricept] 10 mg PO 12/20/19 06/24/21 Fish Oil/Dha/Epa [Fish Oil 1,200 1 cap PO DAILY@119912/20/19 06/24/21 mg Fish Oil] Garlic 1 tab PO DAILY@119912/20/19 06/24/21 Latanoprost/Pf [Latanoprost 0.005% 1 drop BOTH EYES 12/20/19 06/24/21 Eye Drop] Multivitamins, Thera [Multivitamin 1 tab PO DAILY@119912/20/19 06/24/21 (formulary)] Escitalopram Oxalate [Lexapro] 10 mg PO DAILY 06/24/21 06/24/21 Famotidine [Pepcid] 20 mg PO DAILY 06/24/21 06/24/21 Ginkgo Biloba 500 mg PO DAILY@1200 06/24/21 06/24/21 Solifenacin Succinate [Vesicare] 5 mg PO DAILY 06/24/21 06/24/21 buPROPion XL [Wellbutrin XL] 150 mg PO DAILY 06/24/21 06/24/21 hydroCHLOROthiazide [Hydrodiuril] 12.5 mg PO DAILY 06/24/21 06/24/21 levETIRAcetam 250 mg PO BID 06/24/21 06/24/21 Allergies Allergy/AdvReac Type Severity Reaction Status Date / Time No Known Allergies Allergy Verified 06/24/21 20:13 Review of Systems ROS Statement: Those systems with pertinent positive or pertinent negative responses have been documented in the HPI. ROS Other: All systems not noted in ROS Statement are negative. Past Medical History Past Medical History: Hypertension Additional Past Medical History / Comment(s): Medical history; patient has a history of depression, benign prostatic hypertrophy, hypertension and glaucoma. The patient surgery include spinal surgery as a teenager. Recent Right RAMON done 07/29/2013 History of Any Multi-Drug Resistant Organisms: None Reported Past Surgical History: Cholecystectomy, Joint Replacement Additional Past Surgical History / Comment(s): RIGHT HIP Past Anesthesia/Blood Transfusion Reactions: No Reported Reaction Past Psychological History: Depression Smoking Status: Never smoker Past Alcohol Use History: None Reported Past Drug Use History: None Reported General Exam Limitations: no limitations General appearance: alert, in no apparent distress Head exam: Present: other (4cm laceration to parietal scalp left side) Expanded Head exam: Present: laceration. Absent: hematoma, raccoon eyes, casanova's sign, general tenderness, tenderness of temporal artery Eye exam: Present: normal appearance, PERRL, EOMI. Absent: scleral icterus, conjunctival injection, nystagmus, periorbital swelling, periorbital tenderness Pupils: Present: normal accommodation ENT exam: Present: normal exam, normal oropharynx, mucous membranes moist Neck exam: Present: normal inspection, full ROM, other (2 nodules left posterior cervical chain). Absent: tenderness, meningismus, thyromegaly Respiratory exam: Present: normal lung sounds bilaterally. Absent: respiratory distress, wheezes, rales, rhonchi, stridor, chest wall tenderness, accessory muscle use, decreased breath sounds Cardiovascular Exam: Present: regular rate. Absent: JVD GI/Abdominal exam: Present: soft. Absent: distended, tenderness Extremities exam: Absent: pedal edema, calf tenderness Back exam: Present: normal inspection. Absent: tenderness, CVA tenderness (R), CVA tenderness (L), rash noted Neurological exam: Present: alert, oriented X3, CN II-XII intact Expanded Patient oriented to: Present: person, place, time Speech: Present: fluid speech Cranial nerves: EOM's Intact: Normal, Gag Reflex: Normal, Tongue Deviation: Normal, Facial Sensation: Normal Motor strength exam: RUE: 5, LUE: 5, RLE: 5, LLE: 5 Eye Response: (4) open spontaneously Motor Response: (6) obeys commands Verbal Response: (5) oriented Dav Total: 15 Psychiatric exam: Present: normal affect, normal mood Skin exam: Present: warm, dry, normal color. Absent: rash, cyanosis, diaphoretic Course Vital Signs 06/24/21 06/24/21 17:34 22:07 Temperature 98.2 F Pulse Rate 86 60 Respiratory 18 16 Rate Blood Pressure 113/87 124/72 O2 Sat by Pulse 98 94 L Oximetry EKG Findings - EKG Results: EKG: sinus rhythm EKG shows: bradycardia (Ventricular rate 58, irritable 0.187, QRS 0.92, QTC 0.420; no old ekg) Procedures - Laceration Laceration #1 Consent Obtained: verbal consent Indication: laceration Site: scalp Size (cm): 4 Description: linear Depth: simple, single layer Anesthetic Used: lidocaine 1% Anesthesia Technique: local infiltration Pre-repair: irrigated extensively Type of Sutures: other (ramon) Number of Sutures: 6 Patient Tolerated Procedure: well, no complications Medical Decision Making - Medical Decision Making 80-year-old male, alert and oriented presents after a fall in the bathroom sustaining a 4cm laceration to the left parietal scalp. Patient denies any loss of consciousness. Patient takes aspirin and fish oil daily, no other blood thinners. Vital signs are stable. Patient denies any pain, no other injuries. Patient does have a history of cerebral palsy. Moves all extremities. Strength equal bilaterally. EKG shows normal sinus with a rate of 58. Troponin is negative at 0.012. Hemoglobin and hematocrit are stable. Electrolytes are unremarkable. Chest x-ray shows no acute cardiopulmonary process or disease. CT of the brain and C-spine show subarachnoid hemorrhage to the right parietal and temporal lobes. No midline shift. There is no evidence of a depressed skull fracture. There is no evidence of cervical spine fracture. Wound was irrigated extensively with 400 mL normal saline and approximated with 6 ramon. Case discussed with Dr. Enriquez and patient will be transferred to [facility]. Patient and his were notified of the findings and they are agreeable to the transfer. Patient was started on Keppra per Dr. Enriquez. Patient was accepted by Dr. Ray at [facility] emergency room. I also spoke with Dr. Palmer with trauma surgery. - Lab Data Result diagrams: 06/24/21 18:57 06/24/21 18:57 Lab Results 06/24/21 06/24/21 06/24/21 Range/Units 18:57 18:57 18:57 WBC 6.5 (3.8-10.6) k/uL RBC 4.72 (4.30-5.90) m/uL Hgb 15.2 (13.0-17.5) gm/dL Hct 44.6 (39.0-53.0) % MCV 94.6 (80.0-100.0) fL MCH 32.3 (25.0-35.0) pg MCHC 34.1 (31.0-37.0) g/dL RDW 12.9 (11.5-15.5) % Plt Count 177 (150-450) k/uL MPV 7.2 Neutrophils % 75 % Lymphocytes % 15 % Monocytes % 4 % Eosinophils % 4 % Basophils % 1 % Neutrophils # 4.9 (1.3-7.7) k/uL Lymphocytes # 1.0 (1.0-4.8) k/uL Monocytes # 0.3 (0-1.0) k/uL Eosinophils # 0.3 (0-0.7) k/uL Basophils # 0.0 (0-0.2) k/uL PT 10.5 (9.0-12.0) sec INR 1.0 (<1.2) APTT 24.5 (22.0-30.0) sec Sodium 138 (137-145) mmol/L Potassium 3.7 (3.5-5.1) mmol/L Chloride 105 (98-107) mmol/L Carbon Dioxide 27 (22-30) mmol/L Anion Gap 6 mmol/L BUN 31 H (9-20) mg/dL Creatinine 1.17 (0.66-1.25) mg/dL Est GFR (CKD-EPI)AfAm 67 (>60 ml/min/1.73 sqM) Est GFR (CKD-EPI)NonAf 58 (>60 ml/min/1.73 sqM) Glucose 91 (74-99) mg/dL Calcium 9.1 (8.4-10.2) mg/dL Magnesium 2.1 (1.6-2.3) mg/dL Total Bilirubin 0.5 (0.2-1.3) mg/dL AST 35 (17-59) U/L ALT 25 (4-49) U/L Alkaline Phosphatase 84 (38-126) U/L Troponin I (0.000-0.034) ng/mL Total Protein 7.4 (6.3-8.2) g/dL Albumin 4.1 (3.5-5.0) g/dL Coronavirus (PCR) (Not Detectd) 06/24/21 06/24/21 Range/Units 18:57 22:03 WBC (3.8-10.6) k/uL RBC (4.30-5.90) m/uL Hgb (13.0-17.5) gm/dL Hct (39.0-53.0) % MCV (80.0-100.0) fL MCH (25.0-35.0) pg MCHC (31.0-37.0) g/dL RDW (11.5-15.5) % Plt Count (150-450) k/uL MPV Neutrophils % % Lymphocytes % % Monocytes % % Eosinophils % % Basophils % % Neutrophils # (1.3-7.7) k/uL Lymphocytes # (1.0-4.8) k/uL Monocytes # (0-1.0) k/uL Eosinophils # (0-0.7) k/uL Basophils # (0-0.2) k/uL PT (9.0-12.0) sec INR (<1.2) APTT (22.0-30.0) sec Sodium (137-145) mmol/L Potassium (3.5-5.1) mmol/L Chloride (98-107) mmol/L Carbon Dioxide (22-30) mmol/L Anion Gap mmol/L BUN (9-20) mg/dL Creatinine (0.66-1.25) mg/dL Est GFR (CKD-EPI)AfAm (>60 ml/min/1.73 sqM) Est GFR (CKD-EPI)NonAf (>60 ml/min/1.73 sqM) Glucose (74-99) mg/dL Calcium (8.4-10.2) mg/dL Magnesium (1.6-2.3) mg/dL Total Bilirubin (0.2-1.3) mg/dL AST (17-59) U/L ALT (4-49) U/L Alkaline Phosphatase (38-126) U/L Troponin I <0.012 (0.000-0.034) ng/mL Total Protein (6.3-8.2) g/dL Albumin (3.5-5.0) g/dL Coronavirus (PCR) Not Detected (Not Detectd) Disposition Clinical Impression: Intracerebral hemorrhage, Fall, Scalp laceration Disposition: OTHER INSTITUTION NOT DEFINED Condition: Good Referrals: Reynaldo Jacobs MD [STAFF PHYSICIAN] - 1-2 days Decision Date: 06/24/21 Decision Time: 20:54 - Out of Hospital Transfer - Req. Specs Out of Hospital Transfer - Requested Specifics: Other Emergency Center ([facility])
[2021-06-24 19:06] LABS: Basophils % (A) 1 %; Eosinophils # (A) 0.3 k/uL (0-0.7); Eosinophils % (A) 4 %; HCT 44.6 % (39.0-53.0); HGB 15.2 gm/dL (13.0-17.5); Lymphocytes % (A) 15 %; MCH 32.3 pg (25.0-35.0); MCHC 34.1 g/dL (31.0-37.0); MCV 94.6 fL (80.0-100.0); Mean Platelet Volume 7.2; Monocytes # (A) 0.3 k/uL (0-1.0); Monocytes % (A) 4 %; Neutrophils # (A) 4.9 k/uL (1.3-7.7); Neutrophils % (A) 75 %; Platelet Count 177 k/uL (150-450); RBC 4.72 m/uL (4.30-5.90); RDW 12.9 % (11.5-15.5); WBC 6.5 k/uL (3.8-10.6)
[2021-06-24 19:14] LABS: Partial Thromboplastin Time 24.5 sec (22.0-30.0); Prothrombin Time 10.5 sec (9.0-12.0)
[2021-06-24 19:16] LABS: Albumin 4.1 g/dL (3.5-5.0); Calcium 9.1 mg/dL (8.4-10.2); Magnesium 2.1 mg/dL (1.6-2.3); Potassium 3.7 mmol/L (3.5-5.1); Total Bilirubin 0.5 mg/dL (0.2-1.3); Total Protein 7.4 g/dL (6.3-8.2)
[2021-06-24] MEDS ORDERED: DIPH,PERTUS(ACELL)TETVAC-LF 0.5 ML VIAL IM ONE (19:32)
--- NOTE | 2021-06-24 20:22 | XR ---
EXAMINATION TYPE: XR chest 2V DATE OF EXAM: 06/24/2021 7:41 PM COMPARISON: 07/31/2013 TECHNIQUE: XR chest 2V Frontal and lateral views of the chest. CLINICAL INDICATION:Male, 80 years old with history of syncope; FINDINGS: Lungs/Pleura: Low lung volumes are present. There is no evidence of pleural effusion, focal consolida tion, or pneumothorax. Pulmonary vascularity: Unremarkable. Heart/mediastinum: Cardiomediastinal silhouette is unremarkable. Musculoskeletal: No acute osseous pathology. IMPRESSION: Low lung volumes without acute cardiopulmonary disease/process.
[2021-06-24] MEDS ORDERED: levETIRAcetam IV 1,000 MG in SALINE 1 100ML.BAG IVPB STA (20:54)
--- NOTE | 2021-06-24 21:00 | CT ---
EXAMINATION TYPE: CT brain cspine wo con CT DLP: 1349.7 mGycm, Automated exposure control for dose reduction was used. DATE OF EXAM: 06/24/2021 8:02 PM COMPARISON: None.. CLINICAL INDICATION:Male, 80 years old with history of syncope; fall, head LAC TECHNIQUE: Brain: Multiple axial CT images of the brain were obtained without IV contrast. Cspine: Axial CT images from the skull base to the inferior aspect of T2 we obtained without intraven ous contrast. Coronal and sagittal reformatted images were also reviewed. FINDINGS: Brain: Extra-axial spaces: High density blood products consistent with subarachnoid hemorrhage right parieta l and temporal lobes and also affecting the left parietal lobe. Ventricular system: Within normal limits Cerebral parenchyma: High density cortex along the posterior right frontal and parietal and temporal lobes.No acute intraparenchymal hemorrhage or mass effect. The mac-white junction is well different iated. Cerebellum: Unremarkable. Mass effect: No evidence of midline shift. Intracranial vasculature: unremarkable Soft tissues: Edema and skin defect over the left parietal region with subcutaneous gas. Calvarium/osseous structures: No depressed skull fracture. Paranasal sinuses and mastoid air cells: Mild scattered mucosal thickening and or secretions. Trace o f fluid within the bilateral mastoid air cells. Visualized orbits: Bilateral aphakia Cervical spine: Fracture: None. Osseous structures: Multilevel degenerative disc disease changes with endplate spurring and disc oste ophyte complex's. Vertebral alignment: Within normal limits. Spinal canal/Neural Foramina: Calcification of the posterior longitudinal ligament from C4 to C7 resu lting in at least mild spinal canal stenosis. Multilevel mild neural foraminal stenosis secondary to facet joint uncovertebral joint arthropathy worse at C3-C3. Neck soft tissues: Prevertebral soft tissues are within normal limits. Other: The airway is patent. The lung apices are clear. Findings communicated to SHANIKA Reddy on 06/24/2021 8:[address] Mateus Fajardo. IMPRESSION: 1. Subarachnoid hemorrhage of the right frontal, parietal, temporal lobes and left parietal. 2. Cortical based hyperdensities likely representing contusion involving the right temporal parietal and posterior frontal lobes versus additional subarachnoid hemorrhage. 3. Left posterior parietal skin edema/laceration. 4. No evidence of cervical spine fracture. 5. Severe multilevel degenerative disc disease with varying degrees of neural foraminal and spinal ca nal stenosis. Most pronounced at C4-C7. 6. C2-C3 moderate strictures neural foraminal stenosis secondary to facet joint and uncovertebral toña nt arthropathy.
[2021-06-25 00:54] VITALS: BP 110/64; PULSE 70; RESP 18; TEMP 98.1
== END 2021-06-25 01:08 | disposition other institution (70) ==
LOC: EC 17:26
DX: S01.01XA Laceration without foreign body of scalp, initial encounter (principal); I61.9 Nontraumatic intracerebral hemorrhage, unspecified; I10 Essential (primary) hypertension; F32.A Depression, unspecified; Z79.82 Long term (current) use of aspirin; Z90.49 Acquired absence of other specified parts of digestive tract; Z96.641 Presence of right artificial hip joint; Z20.822 Contact with and (suspected) exposure to COVID-19; W01.10XA Fall on same level from slipping, tripping and stumbling with subsequent striking against unspecified object, initial encounter
CPT/HCPCS: 99291; 96365; 96361 ×2; 90471; 12002; 36415; 93005; 80053; 83735; 84484; 85025; 85610; 85730; 87635; 71046; 72125; 70450; 90715; J2001; J1953

== ENCOUNTER 2021-10-05 12:30 | Emergency (ER) | payer MEDICARE ==
[2021-10-05 12:36] VITALS: BP 114/66; PULSE 63; RESP 18; TEMP 97.3
--- NOTE | 2021-10-05 13:01 | XR ---
EXAMINATION TYPE: XR chest 2V DATE OF EXAM: 10/05/2021 COMPARISON: 06/24/2021 TECHNIQUE: PA and lateral views submitted. HISTORY: Pain post fall FINDINGS: The lungs are clear and there is no pneumothorax, pleural effusion, or focal pneumonia. Heart size normal. Hypertrophic and degenerative changes spine. Hyperinflation suggests COPD. IMPRESSION: 1. No acute process.
--- NOTE | 2021-10-05 13:19 | CT ---
EXAMINATION TYPE: CT brain cspine wo con DATE OF EXAM: 10/05/2021 COMPARISON: CT dated 06/24/2021 HISTORY: Fall in parking lot striking back of head CT DLP: 1531.2 mGycm Automated exposure control for dose reduction was used. TECHNIQUE: CT scan of the head and cervical spine are performed without contrast. FINDINGS: Brain volume loss changes and suspected chronic microvascular ischemic changes. There is no acute intracranial hemorrhage, mass effect, or midline shift identified. The ventricles and sulci a re within normal limits in size. The globes are intact. Mucosal thickening and air-fluid levels with in the maxillary sinuses. Cervical spine is visualized in its entirety from C1 through upper thoracic levels and demonstrates n o evidence of acute fracture or dislocation. Prevertebral soft tissue appears within normal limits. Persistent severe erosive changes of the odontoid. Stable anterolisthesis of C4 over C5. Osteopenia. Almost completely fused C5, C6 and C7 vertebral bodies. Persistent advanced degenerative changes of t he cervical spine with multilevel DDD, central spinal canal stenosis and neuroforaminal stenosis. Fur ther elective MRI assessment can be considered. Scattered arterial atherosclerotic calcifications. IMPRESSION: 1. There is no acute fracture or dislocation evident in the cervical spine. 2. No acute intracranial hemorrhage, mass effect, or midline shift is seen. 3. Other findings as described above.
--- NOTE | 2021-10-05 13:43 | ED ---
Fall HPI - General Chief Complaint: Fall Stated Complaint: Fall Time Seen by Provider: 10/05/21 12:36 Source: EMS Mode of arrival: EMS - History of Present Illness Initial Comments: Patient is an 80-year-old male who presents to the emergency department for evaluation of fall. Patient has history of dementia and is a questionable historian. The fall was witnessed by patient's family who are present at bedside and help provide history. Patient tripped on the curb while entering the car about one hour ago and fell backwards onto his bottom. He did hit his head on the cement. Denies blood thinner use. Patient presents in a c-collar however denies neck pain and headache. Denies other injury. Denies chest pain, shortness of breath, or other concerns. - Related Data Home Medications Medication Instructions Recorded Confirmed Aspirin 81 mg PO DAILY@119908/15/13 06/24/21 Losartan Potassium [Cozaar] 100 mg PO 08/15/13 06/24/21 Donepezil HCl [Aricept] 10 mg PO 12/20/19 06/24/21 Fish Oil/Dha/Epa [Fish Oil 1,200 1 cap PO DAILY@1200 12/20/19 06/24/21 mg Fish Oil] Garlic 1 tab PO DAILY@1200 12/20/19 06/24/21 Latanoprost/Pf [Latanoprost 0.005% 1 drop BOTH EYES 12/20/19 06/24/21 Eye Drop] Multivitamins, Thera [Multivitamin 1 tab PO DAILY@1200 12/20/19 06/24/21 (formulary)] Escitalopram Oxalate [Lexapro] 10 mg PO DAILY 06/24/21 06/24/21 Famotidine [Pepcid] 20 mg PO DAILY 06/24/21 06/24/21 Ginkgo Biloba 500 mg PO DAILY@1200 06/24/21 06/24/21 Solifenacin Succinate [Vesicare] 5 mg PO DAILY 06/24/21 06/24/21 buPROPion XL [Wellbutrin XL] 150 mg PO DAILY 06/24/21 06/24/21 hydroCHLOROthiazide [Hydrodiuril] 12.5 mg PO DAILY 06/24/21 06/24/21 levETIRAcetam 250 mg PO BID 06/24/21 06/24/21 Allergies Allergy/AdvReac Type Severity Reaction Status Date / Time No Known Allergies Allergy Verified 10/05/21 12:36 Review of Systems ROS Statement: Those systems with pertinent positive or pertinent negative responses have been documented in the HPI. ROS Other: All systems not noted in ROS Statement are negative. Past Medical History Past Medical History: Dementia, Hypertension Additional Past Medical History / Comment(s): Medical history; patient has a history of depression, benign prostatic hypertrophy, hypertension and glaucoma. The patient surgery include spinal surgery as a teenager. Recent Right RAMON done 07/29/2013 History of Any Multi-Drug Resistant Organisms: None Reported Past Surgical History: Cholecystectomy, Joint Replacement Additional Past Surgical History / Comment(s): RIGHT HIP Past Anesthesia/Blood Transfusion Reactions: No Reported Reaction Past Psychological History: Depression Smoking Status: Never smoker Past Alcohol Use History: None Reported Past Drug Use History: None Reported General Exam Limitations: altered mental status General appearance: alert, in no apparent distress Head exam: Present: normal inspection (small abrasion in occipital region, no laceration or hematoma appreciated) Eye exam: Present: normal appearance, PERRL, EOMI. Absent: scleral icterus, c onjunctival injection, periorbital swelling ENT exam: Present: TM's normal bilaterally Respiratory exam: Present: normal lung sounds bilaterally. Absent: respiratory distress, wheezes, rales, rhonchi, stridor Cardiovascular Exam: Present: regular rate, normal rhythm, normal heart sounds. Absent: systolic murmur, diastolic murmur, rubs, gallop, clicks Extremities exam: Present: normal inspection, full ROM. Absent: tenderness Neurological exam: Present: alert, oriented X3, CN II-XII intact Psychiatric exam: Present: normal affect, normal mood Skin exam: Present: warm, dry, intact, normal color. Absent: rash Course Vital Signs 10/05/21 12:32 Temperature 97.3 F L Pulse Rate 63 Respiratory 18 Rate Blood Pressure 114/66 O2 Sat by Pulse 93 L Oximetry Medical Decision Making - Medical Decision Making This is an 80-year-old male who presents for evaluation of fall. Thorough history and examination were performed. Patient is well-appearing and in no apparent distress. He presents in a c-collar placed by EMS. EMS did make note of a hematoma however I inspected his scalp thoroughly which revealed a small abrasion in the occipital region. He denies pain including head and neck pain. His family states that patient typically verbalizes if he is in pain. Due to patient's age and dementia I will obtain CT of the brain and C-spine without contrast as well as chest x-ray. CT of the brain and C-spine is negative for acute process. No acute abnormalities found on chest x-ray. C-collar removed. Patient is feeling well. The abrasion was cleaned thoroughly by the nurse. Patient will be discharged home with instruction to follow up with his primary care provider. Return parameters discussed. Patient's family verbalized understanding and are agreeable to this plan. Dr. Contreras is my attending. Disposition Clinical Impression: Fall, Abrasion Disposition: HOME SELF-CARE Condition: Good Instructions (If sedation given, give patient instructions): Fall Prevention for Older Adults (ED), Abrasion (ED) Additional Instructions: Please keep wound clean and dry. Follow up with primary care provider in 1-2 days. Return to the emergency department if patient experiences new, worsening, or concerning symptoms. Is patient prescribed a controlled substance at d/c from ED?: No Referrals: Kai Jacobs MD [Primary Care Provider] - 1-2 days Time of Disposition: 13:43
== END 2021-10-05 13:55 | disposition home or self-care (01) ==
LOC: EC 12:30
DX: S00.01XA Abrasion of scalp, initial encounter (principal); I10 Essential (primary) hypertension; F03.90 Unspecified dementia, unspecified severity, without behavioral disturbance, psychotic disturbance, mood disturbance, and anxiety; F32.A Depression, unspecified; Z79.82 Long term (current) use of aspirin; Z79.899 Other long term (current) drug therapy; W01.0XXA Fall on same level from slipping, tripping and stumbling without subsequent striking against object, initial encounter
CPT/HCPCS: 70450; 71046; 72125; 99284

== ENCOUNTER 2021-10-30 16:13 | Observation (INO) | payer MEDICARE ==
[2021-10-30 17:26] LABS: Basophils % (A) 1 %; Eosinophils # (A) 0.2 k/uL (0-0.7); Eosinophils % (A) 5 %; HCT 42.9 % (39.0-53.0); HGB 13.6 gm/dL (13.0-17.5); Lymphocytes # (A) 0.9 k/uL (1.0-4.8); Lymphocytes % (A) 23 %; MCH 30.2 pg (25.0-35.0); MCHC 31.8 g/dL (31.0-37.0); MCV 94.9 fL (80.0-100.0); Mean Platelet Volume 7.7; Monocytes # (A) 0.3 k/uL (0-1.0); Monocytes % (A) 7 %; Neutrophils # (A) 2.4 k/uL (1.3-7.7); Neutrophils % (A) 63 %; Platelet Count 167 k/uL (150-450); RBC 4.52 m/uL (4.30-5.90); RDW 12.5 % (11.5-15.5); WBC 3.8 k/uL (3.8-10.6)
[2021-10-30 17:31] LABS: Prothrombin Time 11.3 sec (9.0-12.0)
[2021-10-30 17:39] LABS: Albumin 4.1 g/dL (3.5-5.0); Calcium 9.3 mg/dL (8.4-10.2); Total Bilirubin 0.5 mg/dL (0.2-1.3); Total Protein 6.9 g/dL (6.3-8.2)
[2021-10-30 17:43] LABS: Appearance,Urine Clear (Clear); Bilirubin,Urine Negative (Negative); Blood,Urine Negative (Negative); Color,Urine Yellow; Glucose,Urine (UA) Negative (Negative); Ketones,Urine Negative (Negative); Leukocyte Esterase,Urine Negative (Negative); Nitrite,Urine Negative (Negative); PH, Urine 5.5 (5.0-8.0); Protein,Urine Negative (Negative); Specific Gravity,Urine 1.025 (1.001-1.035); Urobilinogen,Urine <2.0 mg/dL (<2.0)
--- NOTE | 2021-10-30 18:59 | ED ---
General Adult HPI - General Chief complaint: Dizziness Stated complaint: Dizziness,Weakness Time Seen by Provider: 10/30/21 18:45 Source: patient, family (daughter), RN notes reviewed, old records reviewed Mode of arrival: ambulatory Limitations: no limitations - History of Present Illness Initial comments: 81-year-old male presents to the emergency room with his daughter. Daughter states that over the past 3 weeks patient has been increasingly weak and sleeping a lot. She was concerned that he was becoming dehydrated so they stopped giving him his hydrochlorothiazide per Dr. Jacobs related to lower blood pressures. He has been increasing his fluid intake and his urine has been clear per daughter. No fevers, no nausea vomiting or diarrhea. He denies any chest pain or shortness of breath. She states that he did sleep until 3:00 this afternoon which is unlike him and he has been using his walker more frequently because of his weakness. He has had 2 falls this year. The fall in June resulting in intracranial bleed. Patient does have some slurred speech which daughter states is normal for him. -: week(s) (3) Severity scale (1-10): 0 Associated Symptoms: malaise Treatments Prior to Arrival: none - Related Data Home Medications Medication Instructions Recorded Confirmed Aspirin 81 mg PO DAILY@119908/15/13 06/24/21 Losartan Potassium [Cozaar] 100 mg PO 08/15/13 06/24/21 Donepezil HCl [Aricept] 10 mg PO 12/20/19 06/24/21 Fish Oil/Dha/Epa [Fish Oil 1,200 1 cap PO DAILY@119912/20/19 06/24/21 mg Fish Oil] Garlic 1 tab PO DAILY@119912/20/19 06/24/21 Latanoprost/Pf [Latanoprost 0.005% 1 drop BOTH EYES 12/20/19 06/24/21 Eye Drop] Multivitamins, Thera [Multivitamin 1 tab PO DAILY@119912/20/19 06/24/21 (formulary)] Escitalopram Oxalate [Lexapro] 10 mg PO DAILY 06/24/21 06/24/21 Famotidine [Pepcid] 20 mg PO DAILY 06/24/21 06/24/21 Ginkgo Biloba 500 mg PO DAILY@119906/24/21 06/24/21 Solifenacin Succinate [Vesicare] 5 mg PO DAILY 06/24/21 06/24/21 buPROPion XL [Wellbutrin XL] 150 mg PO DAILY 06/24/21 06/24/21 hydroCHLOROthiazide [Hydrodiuril] 12.5 mg PO DAILY 06/24/21 06/24/21 levETIRAcetam 250 mg PO BID 06/24/21 06/24/21 Allergies Allergy/AdvReac Type Severity Reaction Status Date / Time No Known Allergies Allergy Verified 10/30/21 16:50 Review of Systems ROS Statement: Those systems with pertinent positive or pertinent negative responses have been documented in the HPI. ROS Other: All systems not noted in ROS Statement are negative. Past Medical History Past Medical History: Hypertension Additional Past Medical History / Comment(s): CP History of Any Multi-Drug Resistant Organisms: None Reported Past Surgical History: Cholecystectomy, Joint Replacement Additional Past Surgical History / Comment(s): RIGHT HIP Past Anesthesia/Blood Transfusion Reactions: No Reported Reaction Past Psychological History: Depression Smoking Status: Never smoker Past Alcohol Use History: None Reported Past Drug Use History: None Reported General Exam Limitations: no limitations General appearance: alert, in no apparent distress Head exam: Present: atraumatic, normocephalic Eye exam: Present: PERRL. Absent: scleral icterus, conjunctival injection, natalia orbital swelling, periorbital tenderness Neck exam: Absent: tenderness, meningismus Respiratory exam: Absent: respiratory distress, accessory muscle use Cardiovascular Exam: Present: bradycardia GI/Abdominal exam: Present: soft. Absent: distended, tenderness Neurological exam: Present: alert, oriented X3 Expanded Patient oriented to: Present: person, place, time Speech: Present: fluid speech Motor strength exam: RUE: 5, LUE: 5, RLE: 4, LLE: 4 Eye Response: (4) open spontaneously Motor Response: (6) obeys commands Verbal Response: (5) oriented Dav Total: 15 Psychiatric exam: Present: normal affect, normal mood Skin exam: Present: warm, dry. Absent: cyanosis, diaphoretic, petechiae, pallor Course Vital Signs 10/30/21 16:45 Temperature 98.0 F Pulse Rate 52 L Respiratory 16 Rate Blood Pressure 106/60 O2 Sat by Pulse 99 Oximetry EKG Findings - EKG Results: EKG: sinus rhythm (Ventricular rate 48, WI interval 0.162, QRS 0.84, QTC 0.376) Medical Decision Making - Medical Decision Making Patient presents with increasing generalized weakness and fatigue over the past 3 weeks and has been sleeping a lot. EKG shows sinus bradycardia with a rate of 48. Troponin is negative at 0.012. Electrolytes are unremarkable. Hematocrit are stable. No evidence of urinary tract infection. Patient denies any chest pain or difficulty breathing. No fevers. No nausea vomiting or diarrhea. Labs are unremarkable. Patient has had no fevers, no nausea vomiting or diarrhea. He did eat at [employer] prior to arrival today. Patient does not have a history of bradycardia which may be the cause of his symptoms. He will be placed in observation to Dr. Rose with cardiac consult. Case discussed with Dr. Contreras. - Lab Data Result diagrams: 10/30/21 17:16 10/30/21 17:16 Lab Results 10/30/21 10/30/21 10/30/21 Range/Units 16:51 17:16 17:16 WBC 3.8 (3.8-10.6) k/uL RBC 4.52 (4.30-5.90) m/uL Hgb 13.6 (13.0-17.5) gm/dL Hct 42.9 (39.0-53.0) % MCV 94.9 (80.0-100.0) fL MCH 30.2 (25.0-35.0) pg MCHC 31.8 (31.0-37.0) g/dL RDW 12.5 (11.5-15.5) % Plt Count 167 (150-450) k/uL MPV 7.7 Neutrophils % 63 % Lymphocytes % 23 % Monocytes % 7 % Eosinophils % 5 % Basophils % 1 % Neutrophils # 2.4 (1.3-7.7) k/uL Lymphocytes # 0.9 L (1.0-4.8) k/uL Monocytes # 0.3 (0-1.0) k/uL Eosinophils # 0.2 (0-0.7) k/uL Basophils # 0.0 (0-0.2) k/uL PT 11.3 (9.0-12.0) sec INR 1.0 (<1.2) Sodium (137-145) mmol/L Potassium (3.5-5.1) mmol/L Chloride (98-107) mmol/L Carbon Dioxide (22-30) mmol/L Anion Gap mmol/L BUN (9-20) mg/dL Creatinine (0.66-1.25) mg/dL Est GFR (CKD-EPI)AfAm (>60 ml/min/1.73 sqM) Est GFR (CKD-EPI)NonAf (>60 ml/min/1.73 sqM) Glucose (74-99) mg/dL Calcium (8.4-10.2) mg/dL Total Bilirubin (0.2-1.3) mg/dL AST (17-59) U/L ALT (4-49) U/L Alkaline Phosphatase (38-126) U/L Troponin I (0.000-0.034) ng/mL Total Protein (6.3-8.2) g/dL Albumin (3.5-5.0) g/dL Urine Color Yellow Urine Appearance Clear (Clear) Urine pH 5.5 (5.0-8.0) Ur Specific [place] 1.025 (1.001-1.035) Urine Protein Negative (Negative) Urine Glucose (UA) Negative (Negative) Urine Ketones Negative (Negative) Urine Blood Negative (Negative) Urine Nitrite Negative (Negative) Urine Bilirubin Negative (Negative) Urine Urobilinogen <2.0 (<2.0) mg/dL Ur Leukocyte Esterase Negative (Negative) 10/30/21 10/30/21 Range/Units 17:16 17:16 WBC (3.8-10.6) k/uL RBC (4.30-5.90) m/uL Hgb (13.0-17.5) gm/dL Hct (39.0-53.0) % MCV (80.0-100.0) fL MCH (25.0-35.0) pg MCHC (31.0-37.0) g/dL RDW (11.5-15.5) % Plt Count (150-450) k/uL MPV Neutrophils % % Lymphocytes % % Monocytes % % Eosinophils % % Basophils % % Neutrophils # (1.3-7.7) k/uL Lymphocytes # (1.0-4.8) k/uL Monocytes # (0-1.0) k/uL Eosinophils # (0-0.7) k/uL Basophils # (0-0.2) k/uL PT (9.0-12.0) sec INR (<1.2) Sodium 141 (137-145) mmol/L Potassium 4.0 (3.5-5.1) mmol/L Chloride 107 (98-107) mmol/L Carbon Dioxide 26 (22-30) mmol/L Anion Gap 8 mmol/L BUN 31 H (9-20) mg/dL Creatinine 1.12 (0.66-1.25) mg/dL Est GFR (CKD-EPI)AfAm 71 (>60 ml/min/1.73 sqM) Est GFR (CKD-EPI)NonAf 61 (>60 ml/min/1.73 sqM) Glucose 95 (74-99) mg/dL Calcium 9.3 (8.4-10.2) mg/dL Total Bilirubin 0.5 (0.2-1.3) mg/dL AST 26 (17-59) U/L ALT 21 (4-49) U/L Alkaline Phosphatase 91 (38-126) U/L Troponin I <0.012 (0.000-0.034) ng/mL Total Protein 6.9 (6.3-8.2) g/dL Albumin 4.1 (3.5-5.0) g/dL Urine Color Urine Appearance (Clear) Urine pH (5.0-8.0) Ur Specific [place] (1.001-1.035) Urine Protein (Negative) Urine Glucose (UA) (Negative) Urine Ketones (Negative) Urine Blood (Negative) Urine Nitrite (Negative) Urine Bilirubin (Negative) Urine Urobilinogen (<2.0) mg/dL Ur Leukocyte Esterase (Negative) Disposition Clinical Impression: Bradycardia, Weakness Disposition: ADMITTED IP TO THIS [facility] Referrals: Kai Jacobs MD [Primary Care Provider] - 1-2 days Decision Date: 10/30/21 Decision Time: 19:07
[2021-10-30] MEDS ORDERED: NALOXONE 0.4 MG/ML 1 ML VIAL IV PRN (19:12)
[2021-10-30 19:23] LABS: Magnesium 2.2 mg/dL (1.6-2.3)
[2021-10-30] MEDS ORDERED: DONEPEZIL 10 MG TAB PO SCH (21:00)
[2021-10-30] MEDS: LOSARTAN 50 MG TAB PO SCH (21:27)
[2021-10-30] MEDS: levETIRAcetam 250 MG TAB PO SCH (21:39)
[2021-10-31] MEDS: TROSPIUM CHLORIDE 20 MG TABLET PO SCH (08:34)
[2021-10-31] MEDS: FAMOTIDINE 20 MG TAB PO SCH (08:35)
[2021-10-31] MEDS: levETIRAcetam 250 MG TAB PO SCH ×2 (08:35→20:29)
[2021-10-31] MEDS: ESCITALOPRAM 10 MG TAB PO SCH (08:35)
[2021-10-31] MEDS: buPROPion XL 150 MG TAB.ER.24H PO SCH (08:35)
--- NOTE | 2021-10-31 09:45 | P.CRDCN ---
History of Present Illness History of present illness: HISTORY OF PRESENTING ILLNESS This is a pleasant 81-year-old male past medical history significant for TIA/CVA, hypertension, BPH, 2 falls this past year one resulting in intracranial bleed. 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 We have been asked to see in consultation for bradycardia. Patient presents to the emergency department with 2 episodes of dizziness over the past 1-2 weeks. He states at night he had 2 episodes dizziness, that he felt the room was spinning, when he woke up the episode resolved. He denies any syncope, chest pain, shortness of breath, nausea, vomiting, fever, cough or chills. Per the emergency department, patient's daughter was concerned that over the past 3 weeks patient has become increasingly weak and sleeping a lot, she was concerned the patient was becoming possibly more dehydrated. Per ER daughter stated that he did sleep until 3:00 this afternoon and he has been using his walker more frequently because of his weakness. Patient seen and examined at bedside, he denies any complaints. Overall he states he is feeling well. No known history of CAD, [place], diabetes, seizures, asthma or COPD. Patient does take Aricept. DIAGNOSTICS EKG reveals sinus bradycardia, heart rate 48, no acute ST-T wave abnormalities Telemetry tracings indicate sinus rhythm, heart rate 4760s Most recent echocardiogram in 2019 reveals an EF 5560 %, trace mitral and tricuspid regurgitation Head and cervical spine CT 10/05/2021 revealed no acute intracranial hemorrhage, mass effect or midline shift. No evidence of acute fracture dislocation of the cervical spine. Almost completely fused C5, C6 and C7 vertebral bodies, persistent advanced degenerative changes of the cervical spine with multilevel DDD, central spinal canal stenosis and neuroforaminal stenosis Laboratory reviewed, CBC unremarkable, troponin negative, sodium 141, potassium 4.0, BUN 31, serum creatinine 1.1, UA negative Current home cardiac medications include Keppra 250 mg twice a day, hydrochlorothiazide 25 mg daily, losartan 100 mg nightly, Aricept, Lexapro, Pepcid, meloxicam, garlic, aspirin, ginkgo biloba REVIEW OF SYSTEMS At the time of my exam: CONSTITUTIONAL: Denies fever or chills. CARDIOVASCULAR: Denies chest pain, shortness of breath, orthopnea, PND or palpitations. RESPIRATORY: Denies cough. GASTROINTESTINAL: Denies abdominal pain, diarrhea, constipation, nausea or vomiting. MUSCULOSKELETAL: Denies myalgias. NEUROLOGIC: +dizziness Denies numbness, tingling, headacbe or weakness. ENDOCRINE: Denies fatigue, weight change, polydipsia or polyurina. GENITOURINARY: Denies burning, hematuria or urgency with micturation. HEMATOLOGIC: Denies history of anemia or bleeding. PHYSICAL EXAMINATION Blood pressure 121/64, heart rate 53, afebrile, saturation 95% room air CONSTITUTIONAL: No apparent distress. HEENT: Head is normocephalic. Pupils are equal, round. Sclerae anicteric. Mucous membranes of the mouth are moist. No JVD. No carotid bruit. CHEST EXAMINATION: Lungs are clear to auscultation. No chest wall tenderness is noted on palpation or with deep breathing. HEART EXAMINATION: Regular rate and rhythm. S1, S2 heard. No murmurs, gallops or rub. ABDOMEN: Soft, nontender. Positive bowel sounds. EXTREMITIES: 2+ peripheral pulses, no lower extremity edema and no calf tenderness. NEUROLOGIC EXAMINATION: Patient is awake, alert and oriented x3. ASSESSMENT Dizziness, 2 episodes Increased generalized weakness reported by family Sinus bradycardia History of TIA/CVA Hypertension Reported 2 falls this past year one resulting in intracranial bleed PLAN No significant bradycardia or pauses noted on telemetry at this time Obtain 2D echocardiogram and doppler study to assess cardiac structure and function. Recommend 30 day event monitor on discharge Hold Aricept at this time Neurology has been consulted Further recommendations based on clinical course If echocardiogram stable, ok to discharge when cleared by other consultants and event monitor is placed. Nurse practitioner note has been reviewed by physician. Signing provider agrees with the documented findings, assessment, and plan of care. Past Medical History Past Medical History: Hypertension Additional Past Medical History / Comment(s): CP History of Any Multi-Drug Resistant Organisms: None Reported Past Surgical History: Cholecystectomy, Joint Replacement Additional Past Surgical History / Comment(s): RIGHT HIP Past Anesthesia/Blood Transfusion Reactions: No Reported Reaction Past Psychological History: Depression Smoking Status: Former smoker Past Alcohol Use History: None Reported Past Drug Use History: None Reported Medications and Allergies Home Medications Medication Instructions Recorded Confirmed Type Aspirin 81 mg PO DAILY@1200 08/15/13 10/30/21 History Losartan Potassium [Cozaar] 100 mg PO HS 08/15/13 10/30/21 History Donepezil HCl [Aricept] 10 mg PO HS 12/20/19 10/30/21 History Fish Oil/Dha/Epa [Fish Oil 1,200 1 cap PO DAILY@1200 12/20/19 10/30/21 History mg Fish Oil] Garlic 1 tab PO DAILY@1200 12/20/19 10/30/21 History Latanoprost/Pf [Latanoprost 0.005% 1 drop BOTH EYES HS 12/20/19 10/30/21 History Eye Drop] Multivitamins, Thera [Multivitamin 1 tab PO DAILY@1200 12/20/19 10/30/21 History (formulary)] Escitalopram Oxalate [Lexapro] 10 mg PO DAILY 06/24/21 10/30/21 History Famotidine [Pepcid] 20 mg PO DAILY 06/24/21 10/30/21 History Ginkgo Biloba 500 mg PO DAILY@1200 06/24/21 10/30/21 History hydroCHLOROthiazide [Hydrodiuril] 12.5 mg PO DAILY 06/24/21 10/30/21 History levETIRAcetam 250 mg PO BID 06/24/21 10/30/21 History Meloxicam 7.5 mg PO DAILY 10/30/21 10/30/21 History Solifenacin Succinate [Vesicare] 10 mg PO DAILY 10/30/21 10/30/21 History buPROPion XL [Wellbutrin XL] 300 mg PO DAILY 10/30/21 10/30/21 History Allergies Allergy/AdvReac Type Severity Reaction Status Date / Time No Known Allergies Allergy Verified 10/30/21 19:58 Physical Exam Vitals: Vital Signs Temp Pulse Pulse Resp BP BP Pulse Ox 10/31/21 07:00 97.8 F 53 L 18 121/64 95 10/31/21 02:22 98.4 F 58 L 17 106/58 94 L 10/30/21 22:59 97.5 F L 57 L 16 132/65 97 10/30/21 21:41 98 F 56 L 20 111/71 97 10/30/21 16:45 98.0 F 52 L 16 106/60 99 Intake and Output 10/30/21 10/31/21 10/31/21 22:59 06:59 14:59 Intake Total 0 Balance 0 Intake: Oral 0 Other: Voiding Method Toilet # Voids 1 Weight 74.843 kg Results 10/30/21 17:16 10/30/21 17:16 Cardiac Enzymes 10/30/21 10/30/21 Range/Units 17:16 17:16 AST 26 (17-59) U/L Troponin I <0.012 (0.000-0.034) ng/mL Coagulation 10/30/21 Range/Units 17:16 PT 11.3 (9.0-12.0) sec CBC 10/30/21 Range/Units 17:16 WBC 3.8 (3.8-10.6) k/uL RBC 4.52 (4.30-5.90) m/uL Hgb 13.6 (13.0-17.5) gm/dL Hct 42.9 (39.0-53.0) % Plt Count 167 (150-450) k/uL Comprehensive Metabolic Panel 10/30/21 Range/Units 17:16 Sodium 141 (137-145) mmol/L Potassium 4.0 (3.5-5.1) mmol/L Chloride 107 (98-107) mmol/L Carbon Dioxide 26 (22-30) mmol/L BUN 31 H (9-20) mg/dL Creatinine 1.12 (0.66-1.25) mg/dL Glucose 95 (74-99) mg/dL Calcium 9.3 (8.4-10.2) mg/dL AST 26 (17-59) U/L ALT 21 (4-49) U/L Alkaline Phosphatase 91 (38-126) U/L Total Protein 6.9 (6.3-8.2) g/dL Albumin 4.1 (3.5-5.0) g/dL Current Medications Generic Name Dose Route Start Last Admin Trade Name Freq PRN Reason Stop Dose Admin Aspirin 81 mg 10/31/21 12:00 Aspirin 81 Mg PO DAILY@1200 VICENTA Bupropion HCl 150 mg 10/31/21 09:00 10/31/21 08:35 Bupropion Xl 150 Mg Tab.Er.24h PO 150 mg DAILY VICENTA Administration Escitalopram Oxalate 10 mg 10/31/21 09:00 10/31/21 08:35 Escitalopram 10 Mg Tab PO 10 mg DAILY VICENTA Administration Famotidine 20 mg 10/31/21 09:00 10/31/21 08:35 Famotidine 20 Mg Tab PO 20 mg DAILY VICENTA Administration Levetiracetam 250 mg 10/30/21 21:00 10/31/21 08:35 Levetiracetam 250 Mg Tab PO 250 mg BID VICENTA Administration Losartan Potassium 100 mg 10/30/21 21:00 10/30/21 21:27 Losartan 50 Mg Tab PO 100 mg HS VICENTA Administration Multivitamins 1 each 10/31/21 12:00 Multivitamins, Thera 1 Each Tab PO DAILY@1200 VICENTA Naloxone HCl 0.2 mg 10/30/21 19:12 Naloxone 0.4 Mg/Ml 1 Ml Vial IV Q2M PRN Opioid Reversal Trospium 20 mg 10/31/21 09:00 10/31/21 08:34 Trospium Chloride 20 Mg Tablet PO 20 mg DAILY VICENTA Administration Intake and Output 10/30/21 10/31/21 10/31/21 22:59 06:59 14:59 Intake Total 0 Balance 0 Intake: Oral 0 Other: Voiding Method Toilet # Voids 1 Weight 74.843 kg 10/30/21 17:16 10/30/21 17:16
--- NOTE | 2021-10-31 10:11 | CT ---
EXAMINATION TYPE: CT brain wo con DATE OF EXAM: 10/31/2021 COMPARISON: 10/05/2021 HISTORY: Dizziness CT DLP: 1225 mGycm Automated exposure control for dose reduction was used. FINDINGS: Calvarium intact. Nonspecific radiopaque densities in the soft tissues anteriorly could represent chr onic foreign body. Correlate clinically. Moderate generalized degenerative changes low attenuation in the white matter which is nonspecific. No acute hemorrhage or mass effect. No midline shift. Cranioc ervical junction maintained. Sella turcica has a normal appearance. Orbits are symmetric. Intracrania l atherosclerotic changes. IMPRESSION: 1. DEGENERATIVE AND NONSPECIFIC WHITE MATTER CHANGES MOST NORMALLY MATTER ISCHEMIA. 2. CORRELATE FOR SOFT TISSUE FOREIGN BODY.
--- NOTE | 2021-10-31 10:36 | P.CNNES ---
History of Present Illness Consult date: 10/31/21 Requesting physician: Christi Hagen Reason for Consult: dizziness History of Present Illness: This is an 81-year-old gentleman with medical history of cerebral palsy, hypertension who presented emergency department because of generalized weakness over the past 3 weeks. Neurology team is consulted for dizziness. Patient denies of any dizziness, any new focal weakness, numbness, headache. He feels he is at baseline but he does state that he is been having generalized weakness. Past couple weeks. He denies of any visual disturbance. Some history is obtained from medical record. Patient stated that he has cerebral palsy since . It seems that the patient has been the more dehydrated so the patient's hydrochlorothiazide was stopped by his primary care physician. As a result of the generalized weakness the patient has been using his walker more quickly. He had 2 falls in the past year and he had a fall in June in which he resulted in intracranial bleed. He does have slurred speech according to the ED note and that is the his norm and the patient agrees that this is his normal state.. Patient is on home medication of Keppra 250 mg 1 tablet twice a day, Wellbutrin 300 mg daily, Lexapro, Aricept 10 mg, aspirin 81 mg. Some other workup in our facility during this hospital visit consisted of: Patient has been bradycardic heart rate in the 50s CBC with differential is unremarkable BUN is 31 otherwise the rest of chemistry panel is unremarkable Urinalysis is negative for urinary tract infection. Review of Systems Review of system: The 12 point system was reviewed and apparent positive and negative per HPI. Past Medical History Past Medical History: Hypertension Additional Past Medical History / Comment(s): CP History of Any Multi-Drug Resistant Organisms: None Reported Past Surgical History: Cholecystectomy, Joint Replacement Additional Past Surgical History / Comment(s): RIGHT HIP Past Anesthesia/Blood Transfusion Reactions: No Reported Reaction Past Psychological History: Depression Smoking Status: Former smoker Past Alcohol Use History: None Reported Past Drug Use History: None Reported Medications and Allergies Home Medications Medication Instructions Recorded Confirmed Type Aspirin 81 mg PO DAILY@1200 08/15/13 10/30/21 History Losartan Potassium [Cozaar] 100 mg PO HS 08/15/13 10/30/21 History Donepezil HCl [Aricept] 10 mg PO HS 12/20/19 10/30/21 History Fish Oil/Dha/Epa [Fish Oil 1,200 1 cap PO DAILY@1200 12/20/19 10/30/21 History mg Fish Oil] Garlic 1 tab PO DAILY@1200 12/20/19 10/30/21 History Latanoprost/Pf [Latanoprost 0.005% 1 drop BOTH EYES HS 12/20/19 10/30/21 History Eye Drop] Multivitamins, Thera [Multivitamin 1 tab PO DAILY@1200 12/20/19 10/30/21 History (formulary)] Escitalopram Oxalate [Lexapro] 10 mg PO DAILY 06/24/21 10/30/21 History Famotidine [Pepcid] 20 mg PO DAILY 06/24/21 10/30/21 History Ginkgo Biloba 500 mg PO DAILY@1200 06/24/21 10/30/21 History hydroCHLOROthiazide [Hydrodiuril] 12.5 mg PO DAILY 06/24/21 10/30/21 History levETIRAcetam 250 mg PO BID 06/24/21 10/30/21 History Meloxicam 7.5 mg PO DAILY 10/30/21 10/30/21 History Solifenacin Succinate [Vesicare] 10 mg PO DAILY 10/30/21 10/30/21 History buPROPion XL [Wellbutrin XL] 300 mg PO DAILY 10/30/21 10/30/21 History Allergies Allergy/AdvReac Type Severity Reaction Status Date / Time No Known Allergies Allergy Verified 10/30/21 19:58 Physical Examination - Vital Signs Vital Signs: Vital Signs Temp Pulse Pulse Resp BP BP Pulse Ox 10/31/21 07:00 97.8 F 53 L 18 121/64 95 10/31/21 02:22 98.4 F 58 L 17 106/58 94 L 10/30/21 22:59 97.5 F L 57 L 16 132/65 97 10/30/21 21:41 98 F 56 L 20 111/71 97 10/30/21 16:45 98.0 F 52 L 16 106/60 99 Intake and Output 10/30/21 10/31/21 10/31/21 22:59 06:59 14:59 Intake Total 0 Balance 0 Intake: Oral 0 Other: Voiding Method Toilet # Voids 1 Weight 74.843 kg GENERAL: The patient is lying in bed and is not in acute distress. CHEST: The heart rate is regular rate rhythm. No murmurs to auscultation. . LUNG: Clear to auscultation bilaterally no wheezing noted throughout. Not l abored breathing. ABDOMEN/GI: Bowel sounds present in all 4 quadrants. No tenderness to palpation throughout. NEUROLOGICAL: Higher mental function: The patient is awake, alert, oriented to self, place and time. Patient is following simple commands. Mildly slow responding. No aphasia and no neglect. Cranial nerves: The pupils are round, equal and reactive to light. Visual sawant are full to confrontation throughout. Extraocular movement is intact no nystagmus is noted. Facial sensation is normal to touch throughout. The facial strength is flattening of nasolabial on left. Hearing is moderately decreased bilaterally to hand rub. Tongue is midline and moved [id number] without any difficulty. Mild dysarthria (old). Shoulder shrug is normal bilaterally. Motor: Gait is assessed with help of nurse and patient was using a walker and had interverted heel upon walking but not swaying toward one side or other. The strength is 5 over 5 throughout. Normal tone and bulk. Cerebellum: Normal finger to nose bilaterally. Sensation: Sensation is normal to touch throughout. Reflexes (right/left): 1+ throughout. Plantars are mute bilaterally. Results - Laboratory Findings CBC and BMP: 10/30/21 17:16 10/30/21 17:16 Abnormal Lab Findings: Abnormal Labs 10/30/21 10/30/21 17:16 17:16 Lymphocytes # 0.9 L BUN 31 H Assessment and Plan Assessment: Bradycardic with a heart rate in the low 50s Generalized weakness over the past 3 weeks. He denies of any dizziness. Cerebral Palsy Unsteady gait due to his cerebral palsy and had multiple falls in past. Hypertension and during this hospital visits controlled Plan: I ordered a CT of the head without, TSH, vitamin B12, folate. Ordered o rthostatic vitals. Recommend physical and occupational therapy as outpatient. Recommend home evaluation at home to assess home safety and recommend patient to use his walker at all times. PT and OT are consulted Cardiology is consulted for bradycardia We'll defer the rest of medical management to primary team Plan discussed with the patient nurse. Thank you for the consultation. Cristofer Leon M.D. Neuro-hospital Time with Patient: Greater than 30
--- NOTE | 2021-10-31 11:31 | P.HPIM ---
History of Present Illness H&P Date: 10/31/21 HISTORY OF PRESENT ILLNESS This is an 81-year-old male patient of Dr. Kai Jacobs with past medical history of cerebral palsy, seizure disorder, hypertension, dementia, recurrent depression, remote history of tobacco use, benign prostatic hypertrophy, TIA. Patient states that he got up and was shaking all over and was having dizziness. He's had episodes over the past 4 weeks. He also ended up falling onto his left side. Daughter was concerned that he has been sleeping a lot and having increasing weakness and concern that he was dehydrated. He stopped taking his hydrochlorothiazide per Dr. Jacobs's instruction related to lower blood pressure. No fever or chills. No nausea, vomiting, diarrhea. No chest pain or shortness of breath. Patient is also utilizing a walker more frequently due to weakness. Patient does have history of fall in June at which time he sustained an intracranial bleed. Patient's slurred speech is at his baseline. Patient was found to be afebrile, heart rate 52, blood pressure 106/60, pulse ox 99% on room air. EKG wasn't sinus rhythm. Bradycardic at a rate of 48. CBC was unremarkable. Electrolytes normal. BUN 31 creatinine 1.12. Blood sugar 95. Urinalysis was negative. Liver function tests normal. Troponin negative. Albumin 4.1. TSH 1.16. CAT scan of the brain revealed degenerative and nonspecific white matter ch anges. Correlate for soft tissue foreign body. Patient has been seen by cardiology and echocardiogram ordered, recommended 30 day event monitor on discharge, hold Aricept. Patient has been seen by neurology and order CAT scan of the brain, vitamin B12 and folate, orthostatic vital signs, recommend PT and OT REVIEW OF SYSTEMS Constitutional: No fever, no chills, no night sweats. No weight change. Reports weakness, fatigue or lethargy. Reports daytime sleepiness. EENT: No headache. No blurred vision or double vision, no loss of vision. No loss of Hearing, no ringing in the ears, no dizziness. No nasal drainage or congestion. No epistaxis. No sore throat. Lungs: No shortness of breath, cough, no sputum production. No wheezing. Cardiovascular: No chest pain, no lower extremity edema. No palpitations. No paroxysmal nocturnal dyspnea. No orthopnea. No lightheadedness or dizziness. No syncopal episodes. Abdominal: No abdominal pain. No nausea, vomiting. No diarrhea. No constipation. No bloody or tarry stools. No loss of appetite. Genitourinary: No dysuria, increased frequency, urgency. No urinary retention. Musculoskeletal: No myalgias. Reports muscle weakness, reports gait dysfunction, no frequent falls. No back pain. No neck pain. Integumentary: No wounds, no lesions. No rash or pruritus. No unusual bruising. No change in hair or nails. Neurologic: No aphasia. No facial droop. No change in mentation. No head injury. No headache. No paralysis. No paresthesia. Psychiatric: No depression. No anxiety. No mood swings. Endocrine: No abnormal blood sugars. No weight change. No excessive sweating or thirst. No cold intolerance. SOCIAL HISTORY Patient was a smoker and quit 50 years ago. He states he drinks alcohol proximal with one beer per week. FAMILY HISTORY Mother at age 45 from throat cancer. Father at age 70 suddenly unclear etiologies G, possibly heart attack. He has history of heavy alcohol abuse. Patient has one sister with no major medical problems. Patient has 3 children.. PHYSICAL EXAMINATION Gen: This is an 81-year-old male. He is resting in bed appears to be comfortable and in no acute distress. HEENT: Head is atraumatic, normocephalic. Pupils equal, round. Sclerae is anicteric. NECK: Supple. No JVD. No lymphadenopathy. No thyromegaly. LUNGS: Clear to auscultation. No wheezes or rhonchi. No intercostal retra ctions. HEART: Regular rate and rhythm. No murmur. ABDOMEN: Soft. Bowel sounds are present. No masses. No tenderness. EXTREMITIES: No pedal edema. No calf tenderness. NEUROLOGICAL: Patient is awake, alert and oriented x3. Cranial nerves 2 through 12 are grossly intact. ASSESSMENT AND PLAN Bradycardia. Cardiology consult appreciated. Generalized weakness and dizziness episodes. Consult with neurology and cardiology. Cerebral palsy. Continue Sanctura milligrams daily. History of TIA with no residuals. Unsteady gait due to cerebral palsy and multiple falls in the past. PT and OT consults Hypertension. Continue losartan 100 mg at bedtime History of intracranial bleed in June 2021. Continue Keppra 250 mg twice daily Recurrent depression. Continue Lexapro 10 mg daily, Wellbutrin 150 mg daily. Gastroesophageal reflux disease. Continue Pepcid 20 mg daily Patient placed as an observation status. DISCHARGE PLAN Most likely return home. PT and OT consults. Impression and plan of care have been directed as dictated by the signing physician. Christi Hagen nurse practitioner acting as scribe for signing physician. Past Medical History Past Medical History: Hypertension Additional Past Medical History / Comment(s): CP History of Any Multi-Drug Resistant Organisms: None Reported Past Surgical History: Cholecystectomy, Joint Replacement Additional Past Surgical History / Comment(s): RIGHT HIP Past Anesthesia/Blood Transfusion Reactions: No Reported Reaction Past Psychological History: Depression Smoking Status: Former smoker Past Alcohol Use History: None Reported Past Drug Use History: None Reported Medications and Allergies Home Medications Medication Instructions Recorded Confirmed Type Aspirin 81 mg PO DAILY@119908/15/13 10/30/21 History Losartan Potassium [Cozaar] 100 mg PO 08/15/13 10/30/21 History Donepezil HCl [Aricept] 10 mg PO 12/20/19 10/30/21 History Fish Oil/Dha/Epa [Fish Oil 1,200 1 cap PO DAILY@1200 12/20/19 10/30/21 History mg Fish Oil] Garlic 1 tab PO DAILY@1200 12/20/19 10/30/21 History Latanoprost/Pf [Latanoprost 0.005% 1 drop BOTH EYES 12/20/19 10/30/21 History Eye Drop] Multivitamins, Thera [Multivitamin 1 tab PO DAILY@1200 12/20/19 10/30/21 History (formulary)] Escitalopram Oxalate [Lexapro] 10 mg PO DAILY 06/24/21 10/30/21 History Famotidine [Pepcid] 20 mg PO DAILY 06/24/21 10/30/21 History Ginkgo Biloba 500 mg PO DAILY@1200 06/24/21 10/30/21 History hydroCHLOROthiazide [Hydrodiuril] 12.5 mg PO DAILY 06/24/21 10/30/21 History levETIRAcetam 250 mg PO BID 06/24/21 10/30/21 History Meloxicam 7.5 mg PO DAILY 10/30/21 10/30/21 History Solifenacin Succinate [Vesicare] 10 mg PO DAILY 10/30/21 10/30/21 History buPROPion XL [Wellbutrin XL] 300 mg PO DAILY 10/30/21 10/30/21 History Allergies Allergy/AdvReac Type Severity Reaction Status Date / Time No Known Allergies Allergy Verified 10/30/21 19:58 Physical Exam Vitals: Vital Signs Temp Pulse Pulse Resp BP BP Pulse Ox 10/31/21 07:00 97.8 F 53 L 18 121/64 95 10/31/21 02:22 98.4 F 58 L 17 106/58 94 L 10/30/21 22:59 97.5 F L 57 L 16 132/65 97 10/30/21 21:41 98 F 56 L 20 111/71 97 10/30/21 16:45 98.0 F 52 L 16 106/60 99 Intake and Output 10/30/21 10/31/21 10/31/21 22:59 06:59 14:59 Intake Total 0 Balance 0 Intake: Oral 0 Other: Voiding Method Toilet # Voids 1 Weight 74.843 kg Results CBC & Chem 7: 10/30/21 17:16 10/30/21 17:16 Labs: Abnormal Lab Results - Last 24 Hours (Table) 10/30/21 10/30/21 Range/Units 17:16 17:16 Lymphocytes # 0.9 L (1.0-4.8) k/uL BUN 31 H (9-20) mg/dL Thrombosis Risk Factor Assmnt - Choose All That Apply Each Risk Factor Represents 2 Points: Age 61-74 years Each Risk Factor Represents 3 Points: Age 75 years or older Thrombosis Risk Factor Assessment Total Risk Factor Score: 5 Thrombosis Risk Factor Assessment Level: High Risk
[2021-10-31] MEDS ORDERED: ASPIRIN 81 MG PO SCH (12:00)
[2021-10-31] MEDS ORDERED: MULTIVITAMINS, THERA 1 EACH TAB PO SCH (12:00)
[2021-10-31] MEDS: LOSARTAN 50 MG TAB PO SCH (20:28)
[2021-11-01 07:38] VITALS: BP 113/64; PULSE 62; RESP 18; TEMP 97.4
--- NOTE | 2021-11-01 07:42 | CA ---
Transthoracic Echo Report Name: Seng Naidu Age: 81 Gender: M : 1940 Exam Date: 10/31/2021 13:10 Exam Location: [facility] Ht (in): 70 Wt (lb): 165 Ordering Physician: Tamy Simmons Attending/Referring Phys: [employer] Marge Juan RDCS Procedure CPT: Indications: dizziness, bradycardia Cardiac Hx: Technical Quality: Technically difficult study Contrast 1: Lumason Total Dose (mL): 4 Contrast 2: Total Dose (mL): MEASUREMENTS (Male / Female) Normal Values 2D ECHO LV Diastolic Diameter PLAX 3.9 cm 4.2 - 5.9 / 3.9 - 5.3 cm LV Systolic Diameter PLAX 2.7 cm IVS Diastolic Thickness 1.3 cm 0.6 - 1.0 / 0.6 - 0.9 cm LVPW Diastolic Thickness 1.4 cm 0.6 - 1.0 / 0.6 - 0.9 cm LV Relative Wall Thickness 0.7 LA Volume 42.7 cm??? 18 - 58 / 22 - 52 cm??? M-MODE Aortic Root Diameter MM 3.9 cm DOPPLER AV Peak Velocity 124.9 cm/s AV Peak Gradient 6.2 mmHg LVOT Peak Velocity 126.6 cm/s LVOT Peak Gradient 6.4 mmHg MV Area PHT 2.6 cm??? Mitral E Point Velocity 78.0 cm/s Mitral A Point Velocity 72.5 cm/s Mitral E to A Ratio 1.1 MV Deceleration Time 289.7 ms TR Peak Velocity 233.8 cm/s TR Peak Gradient 21.9 mmHg Right Ventricular Systolic Press 26.9 mmHg FINDINGS Left Ventricle Mildly increased left ventricular wall thickness. Normal left ventricular systolic function with no obvious regional wall motion abnormalities. Left ventricular ejection fraction is estimated at 55-60 %. Right Ventricle Normal right ventricular size and function. Right Atrium Normal right atrial size. Left Atrium Normal left atrial size. No evidence for an atrial septal defect. Mitral Valve Structurally normal mitral valve. Mild mitral regurgitation. Aortic Valve No aortic regurgitation. No aortic stenosis. Aortic valve sclerosis. Tricuspid Valve Structurally normal tricuspid valve. Mild tricuspid regurgitation. Pulmonic Valve Trace pulmonic regurgitation. Pericardium No pericardial effusion. Aorta Normal size aortic root and proximal ascending aorta. CONCLUSIONS Mild LVH Normal left ventricular ejection fraction 55-60% Mild mitral regurgitation Mild tricuspid regurgitation No pericardial effusion Previewed by: Dr. Abebe Phillip DO (Electronically Signed) Final Date: 01 November 2021 07:41
--- NOTE | 2021-11-01 08:28 | P.DS ---
Providers Date of admission: 10/30/21 21:02 Attending physician: Lucía Rose Consults: 10/30/21 19:12 Consult Physician Routine Consulting Provider: Dontae Waterman Consult Reason/Comments: Bradycardia with generalized weakness Do you want consulting provider notified?: Yes, Notify in am 10/31/21 08:11 Consult Physician Routine Consulting Provider: Cameron May Consult Reason/Comments: dizziness, hx CP Do you want consulting provider notified?: Yes Primary care physician: Kai Jacobs [facility] Course: HISTORY OF PRESENT ILLNESS This is an 81-year-old male patient of Dr. Kai Jacobs with past medical history of cerebral palsy, seizure disorder, hypertension, dementia, recurrent depression, remote history of tobacco use, benign prostatic hypertrophy, TIA. Patient states that he got up and was shaking all over and was having dizziness. He's had episodes over the past 4 weeks. He also ended up falling onto his left side. Daughter was concerned that he has been sleeping a lot and having increasing weakness and concern that he was dehydrated. He stopped taking his hydrochlorothiazide per Dr. Jacobs's instruction related to lower blood pressure. No fever or chills. No nausea, vomiting, diarrhea. No chest pain or shortness of breath. Patient is also utilizing a walker more frequently due to weakness. Patient does have history of fall in June at which time he sustained an intracranial bleed. Patient's slurred speech is at his baseline. Patient was found to be afebrile, heart rate 52, blood pressure 106/60, pulse ox 99% on room air. EKG wasn't sinus rhythm. Bradycardic at a rate of 48. CBC was unremarkable. Electrolytes normal. BUN 31 creatinine 1.12. Blood sugar 95. Urinalysis was negative. Liver function tests normal. Troponin n egative. Albumin 4.1. TSH 1.16. CAT scan of the brain revealed degenerative and nonspecific white matter changes. Correlate for soft tissue foreign body. Patient has been seen by cardiology and echocardiogram ordered, recommended 30 day event monitor on discharge, hold Aricept. Patient has been seen by neurology and order CAT scan of the brain, vitamin B12 and folate, orthostatic vital signs, recommend PT and OT 02/01: Patient is doing very well had no further episodes his pulse rate still running in the 50s and 60s, echocardiogram was performed showed good ejection fraction. Patient seen and evaluated by cardiology, seen and evaluated by neurology and felt what happened was not neuro related problem. If stable from cardiology standpoint patient be able to go home with 30 days heart monitor and slight adjustment medication is made. Patient is up and about able to ambulate without help using his walker and has more help at home at this point. REVIEW OF SYSTEMS Constitutional: No fever, no chills, no night sweats. No weight change. Reports weakness, fatigue or lethargy. Reports daytime sleepiness. EENT: No headache. No blurred vision or double vision, no loss of vision. No loss of Hearing, no ringing in the ears, no dizziness. No nasal drainage or congestion. No epistaxis. No sore throat. Lungs: No shortness of breath, cough, no sputum production. No wheezing. Cardiovascular: No chest pain, no lower extremity edema. No palpitations. No paroxysmal nocturnal dyspnea. No orthopnea. No lightheadedness or dizziness. No syncopal episodes. Abdominal: No abdominal pain. No nausea, vomiting. No diarrhea. No constipation. No bloody or tarry stools. No loss of appetite. Genitourinary: No dysuria, increased frequency, urgency. No urinary retention. Musculoskeletal: No myalgias. Reports muscle weakness, reports gait dysfunction, no frequent falls. No back pain. No neck pain. Integumentary: No wounds, no lesions. No rash or pruritus. No unusual bruising. No change in hair or nails. Neurologic: No aphasia. No facial droop. No change in mentation. No head injury. No headache. No paralysis. No paresthesia. Psychiatric: No depression. No anxiety. No mood swings. Endocrine: No abnormal blood sugars. No weight change. No excessive sweating or thirst. No cold intolerance. PHYSICAL EXAMINATION Gen: This is an 81-year-old male. He is resting in bed appears to be comfortable and in no acute distress. HEENT: Head is atraumatic, normocephalic. Pupils equal, round. Sclerae is anicteric. NECK: Supple. No JVD. No lymphadenopathy. No thyromegaly. LUNGS: Clear to auscultation. No wheezes or rhonchi. No intercostal retractions. HEART: Regular rate and rhythm. No murmur. ABDOMEN: Soft. Bowel sounds are present. No masses. No tenderness. EXTREMITIES: No pedal edema. No calf tenderness. NEUROLOGICAL: Patient is awake, alert and oriented x3. Cranial nerves 2 through 12 are grossly intact. ASSESSMENT AND PLAN Bradycardia. Patient is seeing cardiology is not any suppressive agent at this point. Heart monitor continue choice pulse rate running in the 50s and 60s patient echocardiogram was pretty normal, will be going home on 30 days heart monitor and keep having severe bradycardia as an outpatient will may be require pacemaker at some point. Generalized weakness and dizziness episodes. This likely an episode of vertigo and bradycardia more than anything else no neuro loss no TIA or CVA his bradycardia has resolved this point continue to watch it as an outpatient. Cerebral palsy. Patient is doing very well as an independent with help. History of TIA with no residuals. Unsteady gait due to cerebral palsy and multiple falls in the past. PT and OT consults Hypertension. Continue losartan 100 mg at bedtime History of intracranial bleed in June 2021. Continue Keppra 250 mg twice daily Recurrent depression. Continue Lexapro 10 mg daily, Wellbutrin 150 mg daily. Gastroesophageal reflux disease. Continue Pepcid 20 mg daily. BPH and urinary retention: Patient is on Sanctura will continue medication. CODE STATUS: Full code. Discharge planning: Patient hopefully will be able to go home today after seeing cardiology arrangement for 30 days heart monitor be done. Plan - Discharge Summary New Discharge Prescriptions: Continue Losartan Potassium [Cozaar] 100 mg PO HS Aspirin 81 mg PO DAILY@1200 Multivitamins, Thera [Multivitamin (formulary)] 1 tab PO DAILY@1200 Latanoprost/Pf [Latanoprost 0.005% Eye Drop] 1 drop BOTH EYES HS Garlic 1 tab PO DAILY@1200 Fish Oil/Dha/Epa [Fish Oil 1,200 mg Fish Oil] 1 cap PO DAILY@1200 Donepezil HCl [Aricept] 10 mg PO HS levETIRAcetam 250 mg PO BID hydroCHLOROthiazide [Hydrodiuril] 12.5 mg PO DAILY buPROPion XL [Wellbutrin XL] 300 mg PO DAILY Solifenacin Succinate [Vesicare] 10 mg PO DAILY Meloxicam 7.5 mg PO DAILY Ginkgo Biloba 500 mg PO DAILY@1200 Famotidine [Pepcid] 20 mg PO DAILY Escitalopram Oxalate [Lexapro] 10 mg PO DAILY Discharge Medication List Aspirin 81 mg PO DAILY@1200 08/15/13 [History] Losartan Potassium [Cozaar] 100 mg PO HS 08/15/13 [History] Donepezil HCl [Aricept] 10 mg PO HS 12/20/19 [History] Fish Oil/Dha/Epa [Fish Oil 1,200 mg Fish Oil] 1 cap PO DAILY@1200 12/20/19 [History] Garlic 1 tab PO DAILY@1200 12/20/19 [History] Latanoprost/Pf [Latanoprost 0.005% Eye Drop] 1 drop BOTH EYES HS 12/20/19 [History] Multivitamins, Thera [Multivitamin (formulary)] 1 tab PO DAILY@1200 12/20/19 [History] Escitalopram Oxalate [Lexapro] 10 mg PO DAILY 06/24/21 [History] Famotidine [Pepcid] 20 mg PO DAILY 06/24/21 [History] Ginkgo Biloba 500 mg PO DAILY@1200 06/24/21 [History] hydroCHLOROthiazide [Hydrodiuril] 12.5 mg PO DAILY 06/24/21 [History] levETIRAcetam 250 mg PO BID 06/24/21 [History] Meloxicam 7.5 mg PO DAILY 10/30/21 [History] Solifenacin Succinate [Vesicare] 10 mg PO DAILY 10/30/21 [History] buPROPion XL [Wellbutrin XL] 300 mg PO DAILY 10/30/21 [History] Follow up Appointment(s)/Referral(s): Abebe Phillip DO [STAFF PHYSICIAN] - 1 Week Kai Jacobs MD [Primary Care Provider] - 1-2 days Discharge Disposition: HOME SELF-CARE
[2021-11-01] MEDS: buPROPion XL 150 MG TAB.ER.24H PO SCH (09:00)
[2021-11-01] MEDS: ESCITALOPRAM 10 MG TAB PO SCH (09:01)
[2021-11-01] MEDS: FAMOTIDINE 20 MG TAB PO SCH (09:01)
[2021-11-01] MEDS: TROSPIUM CHLORIDE 20 MG TABLET PO SCH (09:01)
[2021-11-01] MEDS: levETIRAcetam 250 MG TAB PO SCH (09:01)
--- NOTE | 2021-11-01 10:58 | P.PN ---
Subjective This is a pleasant 81-year-old male past medical history significant for TIA/CVA, hypertension, BPH, 2 falls this past year one resulting in intracranial bleed. 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 We have been asked to see in consultation for bradycardia. Patient presents to the emergency department with 2 episodes of dizziness over the past 1-2 weeks. He states at night he had 2 episodes dizziness, that he felt the room was spinning, when he woke up the episode resolved. He denies any syncope, chest pain, shortness of breath, nausea, vomiting, fever, cough or chills. Per the emergency department, patient's daughter was concerned that over the past 3 weeks patient has become increasingly weak and sleeping a lot, she was concerned the patient was becoming possibly more dehydrated. Per ER daughter stated that he did sleep until 3:00 this afternoon and he has been using his walker more frequently because of his weakness. Patient seen and examined at bedside, he denies any complaints. Overall he states he is feeling well. No known history of CAD, [place], diabetes, seizures, asthma or COPD. Patient does take Aricept. 11/01/2021 Patient seen and examined at bedside, no acute distress. No further dizziness. No chest pain, shortness of breath or lightheadedness. Overall feeling well. Telemetry reviewed patient maintaining sinus mechanism HR 50-60s, no significant bradycardia or pauses noted. Vital signs are stable. Echocardiogram revealed an EF 5560% mild mitral regurgitation, mild tricuspid regurgitation. Mild LVH. PHYSICAL EXAMINATION Vitals reviewed CONSTITUTIONAL: No apparent distress. HEENT: Head is normocephalic. Pupils are equal, round. Sclerae anicteric. Mucous membranes of the mouth are moist. No JVD. . CHEST EXAMINATION: Lungs are clear to auscultation. No chest wall tenderness is noted on palpation or with deep breathing. HEART EXAMINATION: Regular rate and rhythm. S1, S2 heard. No murmurs, gallops or rub. ABDOMEN: Soft, nontender. Positive bowel sounds. EXTREMITIES: 2+ peripheral pulses, no lower extremity edema and no calf tenderness. NEUROLOGIC EXAMINATION: Patient is awake, alert and oriented x3. ASSESSMENT Dizziness, 2 episodes Increased generalized weakness reported by family Sinus bradycardia History of TIA/CVA Hypertension Reported 2 falls this past year one resulting in intracranial bleed PLAN No significant bradycardia or pauses noted on telemetry at this time Echocardiogram revealed an EF 5560%, no significant wall motion or valve abnormalities Recommend 30 day event monitor on discharge From cardiology perspective, patient stable and discharged home. Follow up outpatient Nurse practitioner note has been reviewed by physician. Signing provider agrees with the documented findings, assessment, and plan of care. Objective - Vital Signs Vital signs: Vital Signs Temp 97.4 F L 11/01/21 07:00 Pulse 62 11/01/21 08:00 Resp 18 11/01/21 07:00 BP 113/64 11/01/21 07:00 Pulse Ox 95 11/01/21 07:00 FiO2 Intake & Output 10/31/21 11/01/21 11/01/21 18:59 06:59 18:59 Other: Voiding Method Toilet # Voids 1 2 - Labs CBC & Chem 7: 10/30/21 17:16 10/30/21 17:16
--- NOTE | 2021-11-01 15:11 | P.PN ---
Subjective Progress Note Date: 11/01/21 The patient is seen at bedside and continues to be doing well. Denies any dizziness or other new neurological issues. Objective - Vital Signs Vital signs: Vital Signs Temp 97.4 F L 11/01/21 07:00 Pulse 62 11/01/21 08:00 Resp 18 11/01/21 07:00 BP 113/64 11/01/21 07:00 Pulse Ox 95 11/01/21 07:00 FiO2 Intake & Output 10/31/21 11/01/21 11/01/21 18:59 06:59 18:59 Other: Voiding Method Toilet # Voids 1 2 - Exam GENERAL: The patient is lying in bed and is not in acute distress. NEUROLOGICAL: Higher mental function: The patient is awake, alert, oriented to self, place and time. Patient is following simple commands. Mildly slow responding. No aphasia and no neglect. Cranial nerves: The pupils are round, equal and reactive to light. Visual sawant are full to confrontation throughout. Extraocular movement is intact no nystagmus is noted. Facial sensation is normal to touch throughout. The facial strength is flattening of nasolabial on left. Hearing is moderately decreased bilaterally to hand rub. Tongue is midline and moved [id number] without any difficulty. Mild dysarthria (old). Shoulder shrug is normal bilaterally. Motor: Gait is deferred. The strength is 5 over 5 throughout. Normal tone and bulk. Cerebellum: Normal finger to nose bilaterally. Sensation: Sensation is normal to touch throughout. Reflexes (right/left): 1+ throughout. Plantars are mute bilaterally. SOME OF THE WORK-UP IN HOSPITAL DURING THIS HOSPITAL VISIT CONSISTED OF: TSH is 1.160 Serum folate is more than 20 Vitamin B12 is 803 CT brain is reported as degenerative and nonspecific white matter changes most normally matter ischemia. Correlate for soft tissue foreign-body. I personally reviewed the CT with the reading radiologist in afternoon today and he felt this was more likely due to dermal calcification. - Labs CBC & Chem 7: 10/30/21 17:16 10/30/21 17:16 Assessment and Plan Assessment: Bradycardic with a heart rate in the low 50s Generalized weakness over the past 3 weeks. He denies of any dizziness. Cerebral Palsy Unsteady gait due to his cerebral palsy and had multiple falls in past. Hypertension and during this hospital visits controlled Plan: I Recommend physical and occupational therapy as outpatient. Recommend home evaluation at home to assess home safety and recommend patient to use his walker at all times. PT and OT are consulted Cardiology is consulted for bradycardia We'll defer the rest of medical management to primary team Recommend patient to follow-up with his neurologist as outpatient within 3 weeks. Plan discussed with the patient's primary team. No additional work-up is needed. Cristofer Leon M.D. Neuro-hospital Time with Patient: Less than 30
== END 2021-11-01 10:14 | disposition home or self-care (01) ==
LOC: EC 16:13 → 6NMEDSUR 21:02
PROVIDERS: ADMIT Internal Medicine; ATTEND Internal Medicine
DX: R00.1 Bradycardia, unspecified (principal); G80.9 Cerebral palsy, unspecified; R53.1 Weakness; R42 Dizziness and giddiness; I10 Essential (primary) hypertension; N40.1 Benign prostatic hyperplasia with lower urinary tract symptoms; R33.8 Other retention of urine; F33.9 Major depressive disorder, recurrent, unspecified; F03.90 Unspecified dementia, unspecified severity, without behavioral disturbance, psychotic disturbance, mood disturbance, and anxiety; G40.909 Epilepsy, unspecified, not intractable, without status epilepticus; K21.9 Gastro-esophageal reflux disease without esophagitis; I08.3 Combined rheumatic disorders of mitral, aortic and tricuspid valves; M48.02 Spinal stenosis, cervical region; M50.30 Other cervical disc degeneration, unspecified cervical region; R47.81 Slurred speech; R29.6 Repeated falls; R26.81 Unsteadiness on feet; Z79.1 Long term (current) use of non-steroidal anti-inflammatories (NSAID); Z79.82 Long term (current) use of aspirin; Z79.899 Other long term (current) drug therapy; Z91.81 History of falling; Z90.49 Acquired absence of other specified parts of digestive tract; Z96.641 Presence of right artificial hip joint; Z87.891 Personal history of nicotine dependence; Z86.73 Personal history of transient ischemic attack (TIA), and cerebral infarction without residual deficits; Z87.820 Personal history of traumatic brain injury; Z80.0 Family history of malignant neoplasm of digestive organs; Z81.1 Family history of alcohol abuse and dependence
CPT/HCPCS: 99285; 36415; 93005; 93270; 97162; 97166; 80053; 84443; 82607; 82746; 83735; 84484; 85025; 85610; 81003; 70450; G0378 ×3; C8929; Q9950; 93306

== ENCOUNTER 2022-02-12 14:20 | Emergency (ER) | payer MEDICARE ==
[2022-02-12 14:41] VITALS: RESP 15; TEMP 98.5
[2022-02-12] MEDS ORDERED: MORPHINE SULFATE 4 MG/ML SYRINGE IVP STA (14:41)
--- NOTE | 2022-02-12 14:44 | ED ---
General Adult HPI - General Chief complaint: Weakness Stated complaint: Right inguinal pain Time Seen by Provider: 02/12/22 14:23 Source: patient, EMS, RN notes reviewed Mode of arrival: EMS Limitations: no limitations - History of Present Illness Initial comments: Patient is a pleasant 81-year-old male with a history of previous stroke and a palsy presenting to the emergency department with right inguinal pain. Onset of symptoms was several days ago and progressively worsening. Symptoms are usually worse with getting up and getting out of bed. Patient did not get out of bed today secondary to the discomfort. No swelling noted. No rash. No fever. No history of chronic similar symptoms previously. - Related Data Home Medications Medication Instructions Recorded Confirmed Aspirin 81 mg PO DAILY@119908/15/13 11/29/21 Losartan Potassium [Cozaar] 100 mg PO 08/15/13 11/29/21 Donepezil HCl [Aricept] 10 mg PO 12/20/19 11/29/21 Fish Oil/Dha/Epa [Fish Oil 1,200 1 cap PO DAILY@119912/20/19 11/29/21 mg Fish Oil] Garlic 1 tab PO DAILY@119912/20/19 11/29/21 Latanoprost/Pf [Latanoprost 0.005% 1 drop BOTH EYES 12/20/19 11/29/21 Eye Drop] Multivitamins, Thera [Multivitamin 1 tab PO DAILY@1200 12/20/19 11/29/21 (formulary)] Escitalopram Oxalate [Lexapro] 10 mg PO DAILY 06/24/21 11/29/21 Famotidine [Pepcid] 20 mg PO DAILY 06/24/21 11/29/21 Ginkgo Biloba 500 mg PO DAILY@1200 06/24/21 11/29/21 levETIRAcetam 250 mg PO BID 06/24/21 11/29/21 Meloxicam 7.5 mg PO DAILY 10/30/21 11/29/21 Solifenacin Succinate [Vesicare] 10 mg PO DAILY 10/30/21 11/29/21 buPROPion XL [Wellbutrin XL] 300 mg PO DAILY 10/30/21 11/29/21 Allergies Allergy/AdvReac Type Severity Reaction Status Date / Time No Known Allergies Allergy Verified 02/12/22 14:43 Review of Systems ROS Statement: Those systems with pertinent positive or pertinent negative responses have been documented in the HPI. ROS Other: All systems not noted in ROS Statement are negative. Constitutional: Denies: fever Eyes: Denies: eye pain ENT: Denies: ear pain Respiratory: Denies: cough Cardiovascular: Denies: chest pain Endocrine: Denies: fatigue Gastrointestinal: Denies: abdominal pain Genitourinary: Reports: as per HPI Musculoskeletal: Denies: back pain Skin: Denies: rash Neurological: Denies: headache Past Medical History Past Medical History: Hypertension Additional Past Medical History / Comment(s): CP History of Any Multi-Drug Resistant Organisms: None Reported Past Surgical History: Cholecystectomy, Joint Replacement Additional Past Surgical History / Comment(s): RIGHT HIP Past Anesthesia/Blood Transfusion Reactions: No Reported Reaction Past Psychological History: Depression Smoking Status: Former smoker Past Alcohol Use History: None Reported Past Drug Use History: None Reported General Exam Limitations: no limitations General appearance: alert, in no apparent distress Head exam: Present: normocephalic Eye exam: Present: normal appearance Neck exam: Present: normal inspection Respiratory exam: Present: normal lung sounds bilaterally Cardiovascular Exam: Present: regular rate, normal rhythm Expanded Peripheral pulses: 2+: Dorsalis Pedis (R), Dorsalis Pedis (L) GI/Abdominal exam: Present: soft. Absent: distended, tenderness, guarding, rebound, rigid, pulsatile mass exam: Present: normal inspection, other (No swelling or erythema. No tenderness on exam. Patient does have discomfort with standing and sits back down.). Absent: testicular tenderness, urethral discharge, scrotal swelling Extremities exam: Present: normal inspection. Absent: calf tenderness Neurological exam: Present: alert. Absent: motor sensory deficit Expanded Motor strength exam: RLE: 5, LLE: 5 Psychiatric exam: Present: normal affect, normal mood Skin exam: Present: normal color Course Vital Signs 02/12/22 14:28 Temperature 98.5 F Pulse Rate 58 L Respiratory 15 Rate Blood Pressure 146/76 O2 Sat by Pulse 97 Oximetry Medical Decision Making - Medical Decision Making Patient reevaluated. Patient and family updated. Patient is able to get up and and really without difficulty. - Lab Data Result diagrams: 02/12/22 14:49 02/12/22 14:49 Lab Results 02/12/22 02/12/22 02/12/22 Range/Units 14:49 14:49 14:49 WBC 3.3 L (3.8-10.6) k/uL RBC 4.38 (4.30-5.90) m/uL Hgb 13.2 (13.0-17.5) gm/dL Hct 40.4 (39.0-53.0) % MCV 92.3 (80.0-100.0) fL MCH 30.1 (25.0-35.0) pg MCHC 32.6 (31.0-37.0) g/dL RDW 12.4 (11.5-15.5) % Plt Count 153 (150-450) k/uL MPV 7.7 Neutrophils % 62 % Lymphocytes % 23 % Monocytes % 6 % Eosinophils % 6 % Basophils % 2 % Neutrophils # 2.0 (1.3-7.7) k/uL Lymphocytes # 0.7 L (1.0-4.8) k/uL Monocytes # 0.2 (0-1.0) k/uL Eosinophils # 0.2 (0-0.7) k/uL Basophils # 0.1 (0-0.2) k/uL PT 10.9 (9.0-12.0) sec INR 1.0 (<1.2) APTT 25.1 (22.0-30.0) sec Sodium (137-145) mmol/L Potassium (3.5-5.1) mmol/L Chloride (98-107) mmol/L Carbon Dioxide (22-30) mmol/L Anion Gap mmol/L BUN (9-20) mg/dL Creatinine (0.66-1.25) mg/dL Est GFR (CKD-EPI)AfAm (>60 ml/min/1.73 sqM) Est GFR (CKD-EPI)NonAf (>60 ml/min/1.73 sqM) Glucose (74-99) mg/dL Calcium (8.4-10.2) mg/dL Total Bilirubin (0.2-1.3) mg/dL AST (17-59) U/L ALT (4-49) U/L Alkaline Phosphatase (38-126) U/L Total Protein (6.3-8.2) g/dL Albumin (3.5-5.0) g/dL Urine Color Yellow Urine Appearance Clear (Clear) Urine pH 6.0 (5.0-8.0) Ur Specific [place] 1.016 (1.001-1.035) Urine Protein Negative (Negative) Urine Glucose (UA) Negative (Negative) Urine Ketones Negative (Negative) Urine Blood Negative (Negative) Urine Nitrite Negative (Negative) Urine Bilirubin Negative (Negative) Urine Urobilinogen <2.0 (<2.0) mg/dL Ur Leukocyte Esterase Negative (Negative) 02/12/22 Range/Units 14:49 WBC (3.8-10.6) k/uL RBC (4.30-5.90) m/uL Hgb (13.0-17.5) gm/dL Hct (39.0-53.0) % MCV (80.0-100.0) fL MCH (25.0-35.0) pg MCHC (31.0-37.0) g/dL RDW (11.5-15.5) % Plt Count (150-450) k/uL MPV Neutrophils % % Lymphocytes % % Monocytes % % Eosinophils % % Basophils % % Neutrophils # (1.3-7.7) k/uL Lymphocytes # (1.0-4.8) k/uL Monocytes # (0-1.0) k/uL Eosinophils # (0-0.7) k/uL Basophils # (0-0.2) k/uL PT (9.0-12.0) sec INR (<1.2) APTT (22.0-30.0) sec Sodium 140 (137-145) mmol/L Potassium 4.1 (3.5-5.1) mmol/L Chloride 104 (98-107) mmol/L Carbon Dioxide 25 (22-30) mmol/L Anion Gap 11 mmol/L BUN 23 H (9-20) mg/dL Creatinine 0.91 (0.66-1.25) mg/dL Est GFR (CKD-EPI)AfAm >90 (>60 ml/min/1.73 sqM) Est GFR (CKD-EPI)NonAf 78 (>60 ml/min/1.73 sqM) Glucose 85 (74-99) mg/dL Calcium 9.1 (8.4-10.2) mg/dL Total Bilirubin 0.7 (0.2-1.3) mg/dL AST 31 (17-59) U/L ALT 26 (4-49) U/L Alkaline Phosphatase 106 (38-126) U/L Total Protein 6.4 (6.3-8.2) g/dL Albumin 3.8 (3.5-5.0) g/dL Urine Color Urine Appearance (Clear) Urine pH (5.0-8.0) Ur Specific [place] (1.001-1.035) Urine Protein (Negative) Urine Glucose (UA) (Negative) Urine Ketones (Negative) Urine Blood (Negative) Urine Nitrite (Negative) Urine Bilirubin (Negative) Urine Urobilinogen (<2.0) mg/dL Ur Leukocyte Esterase (Negative) - Radiology Data Radiology results: report reviewed (Ultrasound shows small epididymal cyst and hydrocele. Computed tomography scan reveals no acute process) Disposition Clinical Impression: Inguinal pain Disposition: HOME SELF-CARE Condition: Stable Instructions (If sedation given, give patient instructions): Groin Pain (ED) Additional Instructions: Please follow-up with urology as planned, consider earlier appointment. Please also follow-up with primary care physician in the next day or 2 for recheck. Return for increased pain, unable to ambulate, increased weakness, color change or swelling, fever, worsening symptoms or any other concerns. Is patient prescribed a controlled substance at d/c from ED?: No Referrals: Reynaldo Jacobs MD [Primary Care Provider] - 1-2 days Zackery Harp MD [STAFF PHYSICIAN] - 1-2 days Time of Disposition: 17:10
[2022-02-12 14:58] LABS: Appearance,Urine Clear (Clear); Bilirubin,Urine Negative (Negative); Blood,Urine Negative (Negative); Color,Urine Yellow; Glucose,Urine (UA) Negative (Negative); Ketones,Urine Negative (Negative); Leukocyte Esterase,Urine Negative (Negative); Nitrite,Urine Negative (Negative); Protein,Urine Negative (Negative); Specific Gravity,Urine 1.016 (1.001-1.035); Urobilinogen,Urine <2.0 mg/dL (<2.0)
[2022-02-12 15:06] LABS: Basophils # (A) 0.1 k/uL (0-0.2); Basophils % (A) 2 %; Eosinophils # (A) 0.2 k/uL (0-0.7); Eosinophils % (A) 6 %; HCT 40.4 % (39.0-53.0); HGB 13.2 gm/dL (13.0-17.5); Lymphocytes # (A) 0.7 k/uL (1.0-4.8); Lymphocytes % (A) 23 %; MCH 30.1 pg (25.0-35.0); MCHC 32.6 g/dL (31.0-37.0); MCV 92.3 fL (80.0-100.0); Mean Platelet Volume 7.7; Monocytes # (A) 0.2 k/uL (0-1.0); Monocytes % (A) 6 %; Neutrophils % (A) 62 %; Platelet Count 153 k/uL (150-450); RBC 4.38 m/uL (4.30-5.90); RDW 12.4 % (11.5-15.5); WBC 3.3 k/uL (3.8-10.6)
[2022-02-12 15:14] LABS: ALT 26 U/L (4-49); AST 31 U/L (17-59); African American GFR (CKD) >90 (>60 ml/min/1.73 sqM); Albumin 3.8 g/dL (3.5-5.0); Alkaline Phosphatase 106 U/L (38-126); Anion Gap 11 mmol/L; Blood Urea Nitrogen 23 mg/dL (9-20); Calcium 9.1 mg/dL (8.4-10.2); Carbon Dioxide 25 mmol/L (22-30); Chloride 104 mmol/L (98-107); Glucose 85 mg/dL (74-99); Non-African American GFR(CKD) 78 (>60 ml/min/1.73 sqM); Potassium 4.1 mmol/L (3.5-5.1); Sodium 140 mmol/L (137-145); Total Bilirubin 0.7 mg/dL (0.2-1.3); Total Protein 6.4 g/dL (6.3-8.2)
[2022-02-12 15:15] LABS: Partial Thromboplastin Time 25.1 sec (22.0-30.0); Prothrombin Time 10.9 sec (9.0-12.0)
--- NOTE | 2022-02-12 15:28 | US ---
EXAMINATION TYPE: US scrotum with doppler. Grayscale and color Doppler Duplex imaging performed of livan bhakta scrotum. DATE OF EXAM: 02/12/2022 COMPARISON: NONE CLINICAL HISTORY: pain. Pain per patient. EXAM MEASUREMENTS: TESTICLES: Right Testicle: 3.3 x 2.8 x 3.1 cm Left Testicle: 3.2 x 3.3 x 2.9 cm EPIDIDYMIS HEAD: Right Epididymis: 1.1 x 0.8 x 0.9 cm Left Epididymis: 0.8 x 0.9 x 0.6 cm Doppler performed to assess for testicular vascularity; good bilateral color flow and waveforms are s een. There is no evidence of testicular torsion. Presence of hydroceles: Right > Left Presence of varicoceles: no Right epididymal head cyst= 0.4 cm. Left epididymal head cyst = 0.3 cm IMPRESSION: No evidence of testicular torsion or mass. Small bilateral epididymal cysts. Small bilateral hydrocel es.
--- NOTE | 2022-02-12 16:07 | CT ---
EXAMINATION TYPE: CT pelvis w con DATE OF EXAM: 02/12/2022 COMPARISON: 12/20/2019 HISTORY: R inguinal pain CT DLP: 1058.6 mGycm Automated exposure control for dose reduction was used. CONTRAST: Performed with IV Contrast, patient injected with 100ml mL of Isovue 300. The pelvic ring is intact. There is a right hip prosthesis. No fracture seen. There is extensive soft tissue ossification superior to the greater trochanter of the right femur. No free fluid in the pelvis. Bladder distends smoothly. There are some sigmoid diverticula. No sign o f diverticulitis. No evidence of inguinal hernia. No sign of a bowel obstruction. No pelvic mass. The re is some spinal mild stenosis at L4-5. There is arterial flow demonstrated in the iliac and femoral arteries. No evidence of stenosis. IMPRESSION: Sigmoid diverticulosis without diverticulitis. No evidence of inguinal mass or hernia.
[2022-02-12] MEDS ORDERED: ACET/COD 300 MG/30 MG STARTER PACK 6 TAB BTL PO STA (17:10)
[2022-02-12 17:26] VITALS: BP 124/86; PULSE 61
== END 2022-02-12 17:26 | disposition home or self-care (01) ==
LOC: EC 14:20
DX: R10.813 Right lower quadrant abdominal tenderness (principal); I10 Essential (primary) hypertension; F32.A Depression, unspecified; Z87.891 Personal history of nicotine dependence; Z79.82 Long term (current) use of aspirin; Z79.899 Other long term (current) drug therapy
CPT/HCPCS: 36415; 80053; 85025; 85610; 85730; 81003; 93975; 76870; 72193; 99285; 96374; J2270; Q9967

== ENCOUNTER 2022-02-22 08:14 | Emergency (ER) | payer MEDICARE ==
[2022-02-22] MEDS ORDERED: SODIUM CHLORIDE 0.9% 500 ML 500 ML IV STA (08:20)
[2022-02-22] MEDS ORDERED: MECLIZINE 12.5 MG TAB PO STA (08:21)
[2022-02-22 08:25] VITALS: RESP 15; TEMP 97.9
--- NOTE | 2022-02-22 08:30 | ED ---
General Adult HPI - General Stated complaint: dizziness Time Seen by Provider: 02/22/22 08:15 Source: patient, EMS, RN notes reviewed Mode of arrival: EMS Limitations: no limitations - History of Present Illness Initial comments: This is 81-year-old male presents emergency from via EMS with chief complaint of feeling dizzy, difficulty ambulate in. Patient states she's been walking down some usual recent. Patient has had multiple falls a fall this morning but does have bruising on his face, laceration. Patient denies any blood thinners denies head or neck pain. Patient was placed in a soft collar by EMS. Patient denies any chest pain, palpitation shortness of breath. Patient was seen here last week for weakness reports that with this attempt to get patient into rehab nursing facility. - Related Data Home Medications Medication Instructions Recorded Confirmed Aspirin 81 mg PO DAILY@1200 08/15/13 02/12/22 Losartan Potassium [Cozaar] 100 mg PO 08/15/13 02/12/22 Donepezil HCl [Aricept] 10 mg PO HS 12/20/19 02/12/22 Fish Oil/Dha/Epa [Fish Oil 1,200 1 cap PO DAILY@1200 12/20/19 02/12/22 mg Fish Oil] Garlic 1 tab PO DAILY@1200 12/20/19 02/12/22 Latanoprost/Pf [Latanoprost 0.005% 1 drop BOTH EYES 12/20/19 02/12/22 Eye Drop] Multivitamins, Thera [Multivitamin 1 tab PO DAILY@1200 12/20/19 02/12/22 (formulary)] Escitalopram Oxalate [Lexapro] 10 mg PO DAILY 06/24/21 02/12/22 Famotidine [Pepcid] 20 mg PO DAILY 06/24/21 02/12/22 Ginkgo Biloba 500 mg PO DAILY@1200 06/24/21 02/12/22 levETIRAcetam 250 mg PO BID 06/24/21 02/12/22 Meloxicam 7.5 mg PO DAILY 10/30/21 02/12/22 Solifenacin Succinate [Vesicare] 10 mg PO DAILY 10/30/21 02/12/22 buPROPion XL [Wellbutrin XL] 300 mg PO DAILY 10/30/21 02/12/22 Allergies Allergy/AdvReac Type Severity Reaction Status Date / Time No Known Allergies Allergy Verified 02/12/22 14:43 Review of Systems ROS Statement: Those systems with pertinent positive or pertinent negative responses have been documented in the HPI. ROS Other: All systems not noted in ROS Statement are negative. Past Medical History Past Medical History: Hypertension Additional Past Medical History / Comment(s): CP History of Any Multi-Drug Resistant Organisms: None Reported Past Surgical History: Cholecystectomy, Joint Replacement Additional Past Surgical History / Comment(s): RIGHT HIP Past Anesthesia/Blood Transfusion Reactions: No Reported Reaction Past Psychological History: Depression Smoking Status: Former smoker Past Alcohol Use History: None Reported Past Drug Use History: None Reported General Exam Limitations: no limitations General appearance: alert, in no apparent distress Head exam: Present: atraumatic, normocephalic, normal inspection Eye exam: Present: normal appearance, PERRL, EOMI. Absent: scleral icterus, conjunctival injection, periorbital swelling ENT exam: Present: normal exam, normal oropharynx, mucous membranes moist Neck exam: Present: normal inspection, full ROM. Absent: tenderness, meningismus, lymphadenopathy Respiratory exam: Present: normal lung sounds bilaterally. Absent: respiratory distress, wheezes, rales, rhonchi, stridor Cardiovascular Exam: Present: regular rate, normal rhythm, normal heart sounds. Absent: systolic murmur, diastolic murmur, rubs, gallop, clicks GI/Abdominal exam: Present: soft, normal bowel sounds. Absent: distended, tenderness, guarding, rebound, rigid Neurological exam: Present: alert Skin exam: Present: warm, dry, intact, normal color. Absent: rash Course Vital Signs 02/22/22 02/22/22 02/22/22 08:21 08:30 09:30 Temperature 97.9 F Pulse Rate 52 L 51 L 51 L Respiratory 15 14 15 Rate Blood Pressure 131/78 131/78 126/75 O2 Sat by Pulse 98 100 98 Oximetry 02/22/22 10:00 Temperature Pulse Rate 48 L Respiratory 15 Rate Blood Pressure 131/72 O2 Sat by Pulse 99 Oximetry EKG Findings - EKG Comments: EKG Findings:: EKG performed at 8:24 interpreted by me sinus bradycardia with rate of 50. pr 196 QRS 86 QT/ QTC 418/392 - EKG Results: EKG: interpreted by BENJAMIN Medical Decision Making - Medical Decision Making 81-year-old male presented for episode dizziness more weakness in general. Patient is currently being set up with [facility]. Patient did have home health care nursing set up today and referred from him come is updated and agree with this plan. - Lab Data Result diagrams: 02/22/22 08:41 02/22/22 08:26 Lab Results 02/22/22 02/22/22 02/22/22 Range/Units 08:26 08:26 08:26 WBC (3.8-10.6) k/uL RBC (4.30-5.90) m/uL Hgb (13.0-17.5) gm/dL Hct (39.0-53.0) % MCV (80.0-100.0) fL MCH (25.0-35.0) pg MCHC (31.0-37.0) g/dL RDW (11.5-15.5) % Plt Count (150-450) k/uL MPV Neutrophils % % Lymphocytes % % Monocytes % % Eosinophils % % Basophils % % Neutrophils # (1.3-7.7) k/uL Lymphocytes # (1.0-4.8) k/uL Monocytes # (0-1.0) k/uL Eosinophils # (0-0.7) k/uL Basophils # (0-0.2) k/uL PT 10.7 (9.0-12.0) sec INR 1.0 (<1.2) APTT 26.9 (22.0-30.0) sec Sodium 139 (137-145) mmol/L Potassium 4.3 (3.5-5.1) mmol/L Chloride 110 H (98-107) mmol/L Carbon Dioxide 25 (22-30) mmol/L Anion Gap 4 mmol/L BUN 32 H (9-20) mg/dL Creatinine 1.15 (0.66-1.25) mg/dL Est GFR (CKD-EPI)AfAm 69 (>60 ml/min/1.73 sqM) Est GFR (CKD-EPI)NonAf 59 (>60 ml/min/1.73 sqM) Glucose 86 (74-99) mg/dL Plasma Lactic Acid Josué (0.7-2.0) mmol/L Calcium 8.7 (8.4-10.2) mg/dL Magnesium 2.0 (1.6-2.3) mg/dL Total Bilirubin 0.6 (0.2-1.3) mg/dL AST 31 (17-59) U/L ALT 29 (4-49) U/L Alkaline Phosphatase 112 (38-126) U/L Troponin I <0.012 (0.000-0.034) ng/mL Total Protein 6.4 (6.3-8.2) g/dL Albumin 3.9 (3.5-5.0) g/dL 02/22/22 02/22/22 Range/Units 08:41 08:41 WBC 3.7 L (3.8-10.6) k/uL RBC 4.23 L (4.30-5.90) m/uL Hgb 13.0 (13.0-17.5) gm/dL Hct 39.2 (39.0-53.0) % MCV 92.7 (80.0-100.0) fL MCH 30.8 (25.0-35.0) pg MCHC 33.3 (31.0-37.0) g/dL RDW 12.8 (11.5-15.5) % Plt Count 137 L (150-450) k/uL MPV 8.2 Neutrophils % 61 % Lymphocytes % 25 % Monocytes % 6 % Eosinophils % 5 % Basophils % 1 % Neutrophils # 2.2 (1.3-7.7) k/uL Lymphocytes # 0.9 L (1.0-4.8) k/uL Monocytes # 0.2 (0-1.0) k/uL Eosinophils # 0.2 (0-0.7) k/uL Basophils # 0.0 (0-0.2) k/uL PT (9.0-12.0) sec INR (<1.2) APTT (22.0-30.0) sec Sodium (137-145) mmol/L Potassium (3.5-5.1) mmol/L Chloride (98-107) mmol/L Carbon Dioxide (22-30) mmol/L Anion Gap mmol/L BUN (9-20) mg/dL Creatinine (0.66-1.25) mg/dL Est GFR (CKD-EPI)AfAm (>60 ml/min/1.73 sqM) Est GFR (CKD-EPI)NonAf (>60 ml/min/1.73 sqM) Glucose (74-99) mg/dL Plasma Lactic Acid Josué 0.9 (0.7-2.0) mmol/L Calcium (8.4-10.2) mg/dL Magnesium (1.6-2.3) mg/dL Total Bilirubin (0.2-1.3) mg/dL AST (17-59) U/L ALT (4-49) U/L Alkaline Phosphatase (38-126) U/L Troponin I (0.000-0.034) ng/mL Total Protein (6.3-8.2) g/dL Albumin (3.5-5.0) g/dL Disposition Clinical Impression: Weakness, Falls Disposition: HOME SELF-CARE Condition: Stable Instructions (If sedation given, give patient instructions): Weakness (ED) Additional Instructions: Please return to the Emergency Department if symptoms worsen or any other co ncerns. Is patient prescribed a controlled substance at d/c from ED?: No Referrals: Kai Jacobs MD [Primary Care Provider] - 1-2 days [facility] Visiting Nurse, [NON-STAFF] - 1-2 days Time of Disposition: 10:01
[2022-02-22 08:49] LABS: Basophils % (A) 1 %; Eosinophils # (A) 0.2 k/uL (0-0.7); Eosinophils % (A) 5 %; HCT 39.2 % (39.0-53.0); Lymphocytes # (A) 0.9 k/uL (1.0-4.8); Lymphocytes % (A) 25 %; MCH 30.8 pg (25.0-35.0); MCHC 33.3 g/dL (31.0-37.0); MCV 92.7 fL (80.0-100.0); Mean Platelet Volume 8.2; Monocytes # (A) 0.2 k/uL (0-1.0); Monocytes % (A) 6 %; Neutrophils # (A) 2.2 k/uL (1.3-7.7); Neutrophils % (A) 61 %; Platelet Count 137 k/uL (150-450); RBC 4.23 m/uL (4.30-5.90); RDW 12.8 % (11.5-15.5); WBC 3.7 k/uL (3.8-10.6)
[2022-02-22 09:00] LABS: Partial Thromboplastin Time 26.9 sec (22.0-30.0); Prothrombin Time 10.7 sec (9.0-12.0)
--- NOTE | 2022-02-22 09:01 | XR ---
EXAMINATION TYPE: XR chest 2V DATE OF EXAM: 02/22/2022 COMPARISON: 10/05/2021 TECHNIQUE: PA and lateral views submitted. HISTORY: Altered mental status FINDINGS: The lungs are clear and there is no pneumothorax, pleural effusion, or focal pneumonia. Densities i n the lung apices most likely related to prominent first ribs and similar to prior exam. Suspect unde rlying COPD. There is subsegmental changes at both lung bases. Arthropathy of the shoulders. No overt failure. IMPRESSION: 1. COPD. Favor atelectasis over early basilar infiltrate correlate clinically.
[2022-02-22 09:11] LABS: Albumin 3.9 g/dL (3.5-5.0); Calcium 8.7 mg/dL (8.4-10.2); Potassium 4.3 mmol/L (3.5-5.1); Total Bilirubin 0.6 mg/dL (0.2-1.3); Total Protein 6.4 g/dL (6.3-8.2)
--- NOTE | 2022-02-22 09:24 | CT ---
EXAMINATION TYPE: CT brain sadaf espinosa con DATE OF EXAM: 02/22/2022 COMPARISON: 10/31/2021 HISTORY: Trauma, Dizziness CT DLP: 1443.[address] of the brain was performed. The ventricles, basal cisterns and sulci overlying the cerebral convexities demonstrate mildly enlarg ement. There is no evidence for intracranial hemorrhage or sulcal effacement. There is decreased attenuatio n about the periventricular white matter and deep white matter of both cerebral hemispheres, compatib le with chronic small vessel ischemia. No mass effects are seen. If symptoms persist consider MRI. Osseous calvarium is intact. IMPRESSION: 1. Age related atrophic and chronic small vessel ischemic change without acute intracranial process seen at this time. CT Cervical Spine: Unenhanced CT of the cervical spine was performed with bone and soft tissue window settings submitted . Coronal and sagittal reconstruction is obtained. There is normal alignment and prevertebral soft tissues. No evidence for acute cervical fracture mode rate to severe multilevel degenerative disc disease. Erosive and cystic change of the odontoid. Biapi woo scarring. IMPRESSION: 1. No evidence for acute fracture or subluxation of the cervical spine.
[2022-02-22 10:05] VITALS: BP 131/72; PULSE 48
== END 2022-02-22 10:53 | disposition home or self-care (01) ==
LOC: EC 08:14
DX: R53.1 Weakness (principal); I10 Essential (primary) hypertension; F32.A Depression, unspecified; Z87.891 Personal history of nicotine dependence; Z79.82 Long term (current) use of aspirin; Z79.899 Other long term (current) drug therapy; W19.XXXA Unspecified fall, initial encounter
CPT/HCPCS: 36415; 70450; 71046; 72125; 80053; 83605; 83735; 84484; 85025; 85610; 85730; 93005; 96360; 99285